=== PATIENT | female | born 1970 | race Caucasian/White ===

== ENCOUNTER 2023-04-26 09:22 | Outpatient (OUT) | payer OTHER, SELFPAY ==
--- NOTE | 2023-04-26 09:26 | MM_ITS ---
Patient: HARRISON NASH Exam Date: 04/26/2023 : 1970 Gender:F Ordering : DR YOSEF BERNARD Admission #: [id number] Family : Order #: [id number] CLICK HERE TO VIEW EXAM RADIOLOGY REPORT PROCEDURE: MM TOMOSYNTHESIS SCREENING BI COMPARISON: MG MAMM SCREEN 3D CONSUELO CAD, 04/25/2022. MG MAMM SCREEN CONSUELO W CAD, 05/22/2020. MG MAMM CONSUELO SCRN W CAD DIG, 05/11/2015. INDICATIONS: Screening Calculator Name NCI Breast Cancer Risk Assessment Tool 5 Year Breast Cancer Risk 1.60% Lifetime Breast Cancer Risk 12.80% Personal Breast Cancer No Personal Ovarian Cancer No Treatments None Family Cancers None LOCATION: [facility] BREAST COMPOSITION: Scattered areas fibroglandular density. FINDINGS: DIAGNOSTIC CATEGORY 2--BENIGN FINDING: RIGHT BREAST: No significant suspicious finding. Scattered benign-appearing calcifications are present. No significant change has occurred. LEFT BREAST: No significant suspicious finding. Scattered benign-appearing calcifications are present. No significant change has occurred. RECOMMENDATIONS: ROUTINE MAMMOGRAM AND CLINICAL EVALUATION IN 12 MONTHS. PLEASE NOTE: A NORMAL MAMMOGRAM DOES NOT EXCLUDE THE POSSIBILITY OF BREAST CANCER. A CLINICALLY SUSPICIOUS PALPABLE LUMP SHOULD BE BIOPSIED. Dictated by: Porter Bonner M.D. on 05/01/2023 at 12:49 Approved by: Porter Bonner M.D. on 05/01/2023 at 12:51
== END 2023-04-26 09:23 | disposition home or self-care (01) ==
LOC: MAMMO 09:22
PROVIDERS: PCP Internal Medicine; Visit Provider Internal Medicine
DX: Z12.31 Encounter for screening mammogram for malignant neoplasm of breast (principal)
CPT/HCPCS: 77063; 77067

== ENCOUNTER 2025-02-10 16:05 | Outpatient (OUT) | payer OTHER, SELFPAY ==
--- OUTSIDE RECORDS SUMMARY | 2025-02-10 16:08 | XMS_ITS | Encounter Summary ---
Author Organization [facility] Address [address] [place] [address] Care Team Providers Care Principal Consulting Engineer Name Role Phone Christiane Helms(Historical) Unavailable Unavail able Douglas Faulkner, Jeison MALCOLM Primary Care Provider + Anabel Bonilla RN Unavailable Unavaila Antonio Carmona Primary Care Provider [phone] Rebecca Soliz MD Primary Care Provider [phone] Source Comments In the event this information is protected by the Federal Confidentiality of Alcohol and Drug AbusePatient Records regulations: The Federal rules restrict any use of the information to criminally investigate or prosecute any alcohol or drug abuse patient.[facility] Encounter Details Date Type Department Care Team (Late st Contact Info) Description 02/09/2023 Patient [facility] [address] [address] Vickie Ace RN Out of the office Social History Tobacco Use Types Packs/Day Years Used Date Smoking Tobacco: Former Cigarettes 0.5 29 0 08/1986 - 08/2015 Smokeless Tobacco: Never Alcohol Use Standard Drinks/Week Comments No 0 (1 standard drink = 0.6 oz pur e alcohol) Area Deprivation Index Answer Date Rodrigue rded National Score (1-100), lower number is lower ri sk 59 12/29/2022 State Score (1-10), lower number is lower risk 4 12/29/2022 Data from: https://www.neighborhoodatlas.medicine.[facility]/. Last address used for calculation [address] 12/29/2022 Comments No Sex and Gender Information Value Date Recorded Sex Assigned at Not on file Legal Sex Female 8:21 AM EST Gender Identity Not on file Sexual Orientation Not on file documented as of this encounter Plan of Treatment Upcoming Encounters Date Type Department Care Team (Late st Contact Info) Description 02/21/2025 7:45 AM EDT Appointment Radiology Pet CT [address] [facility] [place] [address] CT with Labs 02/24/2025 12:00 PM EDT [facility] [address] [id number] Kaylynn Bethea, IT NETWORK ARCHITECT.TMR TEACHER [address] [place] [address] f/up 03/17/2025 7:30 AM EDT Office Visit [facility] [address] [place], [place] [address] [address] LAB 04/14/2025 7:30 AM EDT Office Visit [facility] [address] [place] [address] LAB 05/19/2025 7:30 AM EST Office [facility] [address] [facility] [place] [address] LAB 06/16/2025 7:30 AM EST Office Visit [facility] [address] [facility] [place] [address] LAB documented as of this encounter Visit Diagnoses Not on filedocumented in this encounter Additional Health Concerns Infection Onset Date Last Indicated Resolved Time COVID-19 Rule-Out 02/22/2023 02/22/2023 02/22/2023 7:08 PM EDT documented as of this encounter Care Teams Principal Consulting Engineer Relationship Specialty Start Date End Date Jeison Cole Sr., DO PCP - General Family Medicine 03/09/22 03/08/23 Antonio Nelson [address] [place] [address] PCP - General Internal Medicine 03/09/23 01/08/24 Rebecca Soliz MD [address] [place] [address] PCP - General Family Medicine 01/09/24 Christiane Helms(Historical) Referring 01/21/22 Anabel Bonilla, RN 02/24/23 documented as of this encounter
--- OUTSIDE RECORDS SUMMARY | 2025-02-10 16:08 | XMS_ITS | Clinical Summary ---
Author Organization [employer] tem Address [facility] [id number] [address] [place] [address] Care Team Providers Care Freight Loading Supervisor Name Role Phone Rebecca Soliz MD Primary Care Provider Allergies No known active allergies Medications multivit with minerals/lutein (MULTIVITAMIN 50 PLUS ORAL) Take by mouth. Acti ve mycophenolate (CELLCEPT) 250 mg capsule Take 4 capsules (1,000 mg total) by mouth 2 (two) times a day as needed. 3 Active tacrolimus (PROGRAF) 1 mg capsule Take 4 capsules (4 mg total) by mouth in the morning and 4 capsules (4 mg total) before bedtime. 3 Active acetaminophen (TYLENOL EXTRA STRENGTH) 500 mg tablet Take 1 tablet (500 mg total) by mouth every 6 (six) hours as needed. 3 Active predniSONE (DELTASONE) 5 mg tablet Take 1 tablet (5 mg total) by mouth in the morning. 3 Active magnesium oxide (MAGOX) 400 mg tablet Take 1 tablet (400 mg total) by mouth in the morning and 1 tablet (400 mg total) before bedtime. 3 Active fluticasone propionate (FLONASE) 50 mcg/actuation nasal sprayIndications :Seasonal allergic rhinitis due to pollen Administer 1 spray into each nostril in the morning. 16 g 2 4 Active Additional Information Patient not taking.Reported on 12/11/2024 phentermine 37.5 MG capsuleIndicatio ns:Obesity, Class II, BMI 35-39.9 Take 1 capsule (37.5 mg total) by mouth every morning. 30 capsule 4 Active Additional Information Patient not taking.Reported on 12/11/2024 levothyroxine (SYNTHROID, LEVOTHROID) 112 MCG tabletIndication s:Arlene's thyroiditis take 1 tablet by mouth every day 90 tablet 1 4 Active pramipexole (MIRAPEX) 1 mg tabletIndication s:Restless leg syndrome take 1 tablet by mouth every night 90 tablet 4 Active Additional Information Patient not taking.Reported on 12/11/2024 Active Problems Problem Noted Date Diagnosed Date Need for prophylactic immunotherapy 02/27/2023 Overview (03/20/2023): Last Assessment & Plan: Crossmatch T & B cell positive Induction: Simulect 02/24, 02/28 Current immunosuppression: Cellcept 1000 mg BID Steroid taper Tacrolimus 4 mg BID FK level is 7.8 Plan: -Continue current Tacrolimus dose -Continue Cellcept and Steroid taper -FK level daily Obesity, Class II, BMI 35-39.9 02/25/2023 Overview (03/20/2023): Last Assessment & Plan: ASSESSMENT: -BMI 36.36 PLAN: -lifestyle modifications as able Arlene's thyroiditis 04/19/2022 Lesion of liver 04/19/2022 Esophageal varices without bleeding 03/22/2022 Red blood cell antibody positive 03/15/2022 Overview (04/19/2022): See Blood Bank Report, Antibody Interpretation for details. Autoimmune hepatitis 01/22/2009 Resolved Problems Problem Noted Date Diagnosed Date Resolved Date Supraventricular tachycardia 02/23/2023 03/20/2023 Overview (03/20/2023): Last Assessment & Plan: developed SVT intraop which resolved after pressors and fluids. Currently hemodynamically stable Plan: -continues telemetry monitoring - monitor electrolytes Cirrhosis of liver without ascites 03/22/2022 03/20/2023 Hepatocellular carcinoma 03/22/2022 Encounters Date Type Department Care Team Description 12/25/2024 Telephone [facility] [facility] [address] [place] [address] Kristen Robin MD 12/11/2024 7:30 PM EDT Clinical Support [facility] - Sleep Disorders [address] [place] [address] Suspected sleep apnea; Shift work sleep disorder; Excessive daytime sleepiness; Insomnia due to medical condition 12/11/2024 Travel from Last 3 Months Immunizations Immunization Administration Dates Next Due Hep A / Hep B 11/09/2012,10/05/2012 Pneumococcal Polysaccharide 10/05/2012 Family History Medical History Relation Name Comments Diabetes Father Diabetes Paternal Grandmother Glaucoma Paternal Grandmother Relation Name Status Comments Father Paternal Grandmother Social History Tobacco Use Types Packs/Day Years Used Date Smoking Tobacco: Former Cigarettes Smokeless Tobacco: Former Tobacco Cessation:Counseling Given: Not Answered Alcohol Use Standard Drinks/Week Comments Not Currently 0 (1 standard drink = 0.6 oz pur e alcohol) PHQ-2 Answer Date Recorded Total Score 2 05/22/2024 Childcare Answer Date Recorded Childcare Unknown 12/12/2018 Employment Answer Date Recorded Employment Unknown 12/12/2018 Hunger Screening Answer Date Recorded Within the past 12 months we worried whether our food would run out before we got money to buy more. Never True 11/21/2023 Within the past 12 months th e food we bought just didn't last and we didn't have money to get more. Never True 11/21/2023 Comments No Sex and Gender Information Value Date Recorded Sex Assigned at Not on file Legal Sex Female 11:37 AM EDT Gender Identity Not on file Sexual Orientation Not on file Last Filed Vital Signs Vital Sign Reading Time Taken Comments Blood Pressure 110/70 05/22/2024 8:14 AM EST Pulse 84 02/12/2024 3:26 PM EDT Temperature 36.7 C (98 F) 11/21/2023 9:33 AM EDT Respiratory Rate 18 11/21/2023 9:33 AM EDT Oxygen Saturation 97% 11/21/2023 9:33 AM EDT Inhaled Oxygen Concentration - - Weight 99.8 kg (220 lb) 12/11/2024 7:18 PM EDT Height 162.6 cm (5' 4 ) 12/11/2024 7:18 PM EDT Body Mass Index 37.76 12/11/2024 7:18 PM EDT Plan of Treatment Upcoming Encounters Date Type Department Care Team (Late st Contact Info) Description 02/12/2025 3:00 PM EDT Office Visit [facility] [address] [place] [address] Health Maintenance Due Date Last Done Comments DTaP,Tdap and Td Vaccines (1 - Tdap) 1989 Zoster (Shingles) Vaccine (1 of 2) 2020 COVID-19 Vaccine (3 - 2023-2 5 season) 2024 05/31/2021, 11/04/2020 Adult BMI Follow Up Plan 06/15/2024 06/15/2023 Influenza Vaccine 03/03/2025 Pap Smear 04/19/2025 04/19/2022, 04/02, 04/19/2022 Mammogram 05/03/2025 05/03/2024, 04/26/2023 Depression Screening 05/22/2025 05/22/2024 Tobacco Screening 05/22/2025 05/22/2024 Adult BMI Screening 12/11/2025 12/11/2024 Medical Devices Not on file Procedures Procedure Name Priority Date/Time Associated Diagnosis Comments HOME SLEEP STUDY Routine 12/11/2024 6:44 PM EDT Suspected sleep apnea Shift work sleep disorder Excessive daytime sleepiness Insomnia due to medical condition HIGH RISK HPV W/YASSINE Routine 04/19/2022 9:26 AM EDT from Last 3 Months or Most Recently Relevant to Health Maintenance Results * Home sleep study (12/11/2024 6:44 PM EDT) 12/11/2024 6:44 PM EDT Narrative [facility] - 12/25/2024 12:56 AM EDT INTERPRETED us Kristen Robin MD [facility]ENTER ORDERABLES Final Re sult [facility] * High risk HPV w/yassine (04/19/2022 9:26 AM EDT) Hpv specimen type ThinPrep 04/20/2022 9:26 AM EDT [facility] Hpv 16 Negative Negative^N egative 04/21/2022 2:31 PM EDT [facility] Hpv 18 Negative Negative^N egative 04/21/2022 2:31 PM EDT [facility] Other high risk hpv Negative Negative^N egative 04/21/2022 2:31 PM EDT [facility] Comment: HPV types 31,33,35,39,45,52,56,58,59,66 and 68 DNA were undetectable. THINP 04/19/2022 9:26 AM EDT 04/20/2022 9:26 AM EDT us Jinny Perrin BEE ROBBER-GARMENT PRESSER LAB BLOOD ORDERABLES Fin al Result [facility] [address] [facility] [facility] [place] [address] from Last 3 Months or Most Recently Relevant to Health Maintenance Insurance [employer] [address] Care Teams Freight Loading Supervisor Relationship Specialty Start Date End Date Rebecca Soliz MD [address] [place] [address] PCP - General Family Medicine 02/12/24
--- OUTSIDE RECORDS SUMMARY | 2025-02-10 16:08 | XMS_ITS | Encounter Summary ---
Author Organization [facility] tem Address [id number] [address] [place] [address] Care Team Providers Care Front Line Supervisor Name Role Phone Rebecca Soliz MD Primary Care Provider [phone] Encounter Details Date Type Department Care Team (Late Contact Info) Description 05/03/2023 Orders Only [facility] - [facility] Medicine [address] [place] [address] Antonio Nelson, [address] [place] [address] Social History Tobacco Use Types Packs/Day Years Used Date Smoking Tobacco: Former Cigarettes Smokeless Tobacco: Former Alcohol Use Standard Drinks/Week Comments Not Currently 0 (1 standard drink = 0.6 oz pur e alcohol) PHQ-2 Answer Date Recorded Total Score 2 04/26/2023 Childcare Answer Date Recorded Childcare Unknown 12/12/2018 Employment Answer Date Recorded Employment Unknown 12/12/2018 Hunger Screening Answer Date Recorded Within the past 12 months we worried whether our food would run out before we got money to buy more. Never True 04/26/2023 Within the past 12 months th e food we bought just didn't last and we didn't have money to get more. Never True 04/26/2023 Comments No Sex and Gender Information Value Date Recorded Sex Assigned at Not on file Legal Sex Female 11:37 AM EDT Gender Identity Not on file Sexual Orientation Not on file documented as of this encounter Plan of Treatment Upcoming Encounters Date Type Department Care Team (Late Contact Info) Description 02/12/2025 3:00 PM EDT Office Visit [facility] [address] [place] [address] documented as of this encounter Visit Diagnoses Not on filedocumented in this encounter Additional Health Concerns Assessment Noted Time PHQ-9 Depression Total Score: 2 04/26/20 11:11 AM EDT A Body Mass Index follow-up plan has been documented for the patient 04/26/2023 11:53 AM EDT documented as of this encounter Care Teams Front Line Supervisor Relationship Specialty Start Date End Date Rebecca Soliz MD [address] [place] [address] PCP - General Family Medicine 02/12/24 documented as of this encounter
--- OUTSIDE RECORDS SUMMARY | 2025-02-10 16:08 | XMS_ITS | Encounter Summary ---
Author Organization [facility] Address [id number] [address] [place] [address] Care Team Providers Care Window Air Conditioner Installer Name Role Phone Rebecca Soliz MD Primary Care Provider [phone] Encounter Details Date Type Department Care Team ([facility] st Contact Info) Description 10/30/2024 Telephone [facility] [address] [facility] [address] [place] [address] Kristen Robin MD [address] [facility] [address] Left practice 11/[address] [place] [address] Social History Tobacco Use Types Packs/Day Years [...] on file documented as of this encounter Miscellaneous Notes * Telephone Encounter - Pura Schuler - 10/30/2024 9:05 AM EDT 10/30/24- left second message to try to figure out where Zenia had her home sleep study done so I can get the results for Dr. Robin. documented in this encounter Plan of Treatment Upcoming Encounters Date Type Department Care Team (Late st Contact Info) Description 02/12/2025 3:00 PM EDT Office Visit [facility] [address] [place] [address] documented as of this encounter Visit Diagnoses Not on filedocumented in this encounter Additional Health Concerns Assessment Noted Time PHQ-9 Depression Total Score: 2 05/22/20 8:15 AM EST A Body Mass Index follow-up plan has been documented for the patient 06/15/2023 10:43 AM EST documented as of this encounter Care Teams Window Air Conditioner Installer Relationship Specialty Start Date End Date Rebecca Soliz MD [address] [place] [address] PCP - General Family Medicine 02/12/24 documented as of this encounter
--- OUTSIDE RECORDS SUMMARY | 2025-02-10 16:08 | XMS_ITS | Encounter Summary ---
Author Organization [facility] Address [address] [place] [address] Care Team Providers Care Mannequin Decorator Name Role Phone Christiane Helms(Historical) Unavailable Unavail able Douglas Faulkner DO, Charles P Primary Care Provider + Anabel Bonilla RN Unavailable Unavaila Antonio Carmona Primary Care Provider [phone] Rebecca Soliz MD Primary Care Provider [phone] Source Comments In the event this information is protected by the Federal Confidentiality of Alcohol and Drug AbusePatient Records regulations: The Federal rules restrict any use of the information to criminally investigate or prosecute any alcohol or drug abuse patient.[facility] Encounter Details Date Type Department Care Team (Late st Contact Info) Description 04/14/2022 Patient [facility] [address] [address] Provider, [facility] LIVER TRANSPLANT EVALUATION Social History Tobacco Use Types Packs/Day Years Used Date Smoking Tobacco: Former Cigarettes 0.5 20 Smokeless Tobacco: Never Comments:Quit 08/2015 Alcohol Use Standard Drinks/Week Comments No 0 (1 standard drink = 0.6 oz pur e alcohol) Comments No Sex and Gender Information Value Date Recorded Sex Assigned at Not on file Legal Sex Female 8:21 AM EST Gender Identity Not on file Sexual Orientation Not on file COVID-19 Exposure Response Date Recorded In the last 10 days, have yo u been in contact with someone who was confirmed or suspected to have Coronavirus/COVID-19? No / Unsure 04/14/2022 10:29 AM EDT documented as of this encounter Plan of Treatment Upcoming Encounters Date Type Department Care Team (Late st Contact Info) Description 02/21/2025 7:45 AM EDT Appointment Radiology Pet CT [address] [facility] [place] [address] CT with Labs 02/24/2025 12:00 PM EDT [facility] [address] [address] Kaylynn Bethea APRN.CHAIN PERSON [address] [place] [address] f/up 03/17/2025 7:30 AM EDT Office Visit [facility] [address] [facility] [place] [address] LAB 04/14/2025 7:30 AM EDT Office Visit [facility] [address] [facility] [place] [address] LAB 05/19/2025 7:30 AM EST Office Visit [facility] [address] [facility] [place] [address] LAB 06/16/2025 7:30 AM EST Office Visit [facility] [address] [facility] [place] [address] LAB documented as of this encounter Visit Diagnoses Not on filedocumented in this encounter Additional Health Concerns Infection Onset Date Last Indicated Resolved Time COVID-19 Rule-Out 02/22/2023 02/22/2023 02/22/2023 7:08 PM EDT documented as of this encounter Care Teams Mannequin Decorator Relationship Specialty Start Date End Date Jeison Cole Sr., PCP - General Family Medicine 03/09/22 03/08/23 Antonio Nelson [address] [place] [address] PCP - General Internal Medicine 03/09/23 01/08/24 Rebecca Sloiz MD [address] [place] [address] PCP - General Family Medicine 01/09/24 Christiane Helms(Historical) Referring 01/21/22 Anabel Bonilla, RN 02/24/23 documented as of this encounter
--- OUTSIDE RECORDS SUMMARY | 2025-02-10 16:08 | XMS_ITS | Encounter Summary ---
Author Organization [email or web address] [facility] tem Address [id number] [address] [place] [address] Care Team Providers Care Chief Executive Or Managing Director Name Role Phone Rebecca Soliz MD Primary Care Provider [phone] Reason for Referral * Consultation (Routine) - Closed Specialty Diagnoses / Procedures Referred By Contac t Referred To Contact Vascular Surgery Diagnoses Varicose veins of both lower extremities with pain Antonio Nelson DO [address] [place] [address] Phone: tel: fax: Gissel Mcarthur MD Phone: tel:[phone] fax: Referral ID Status Reason Start Date Expiration Date V isits Requested Visits Authorized [id number] Closed Specialty Services Required 12/06/2023 12/05/2024 4 4 Encounter Details Date Type Department Care Team (Late st Contact Info) Description 12/06/2023 Orders Only [facility] - [facility] [address] [place] [address] Antonio Nelson DO [address] [place] [address] Varicose veins of both lower extremities with pain (Primary Dx) Social History Tobacco Use Types Packs/Day Years Used Date Smoking Tobacco: Former Cigarettes Smokeless Tobacco: Former Alcohol Use Standard Drinks/Week Comments Not Currently 0 (1 standard drink = 0.6 oz pur e alcohol) PHQ-2 Answer Date Recorded Total Score 0 11/21/2023 Childcare Answer Date Recorded Childcare Unknown 12/12/2018 [...] PM EDT Office Visit [facility] [address] [place] [address] Scheduled Referrals Name Type Priority Associated Diagnoses Order Schedule [facility] [place] [place] Out[facility] Referral Routine Varicose veins of both lower extremities with pain 1 Occurrences starting 12/06/2023 until 12/05/2024 documented as of this encounter Visit Diagnoses Diagnosis Varicose veins of both lower extremities with pain- Primary documented in this encounter Additional Health Concerns Assessment Noted Time PHQ-9 Depression Total Score: 0 11/21/19 24 9:32 AM EDT A Body Mass Index follow-up plan has been documented for the patient 06/15/2023 10:43 AM EST documented as of this encounter Care Teams Chief Executive Or Managing Director Relationship Specialty Start Date End Date Rebecca Soliz MD [address] [place] [address] PCP - General Family Medicine 02/12/24 documented as of this encounter
--- OUTSIDE RECORDS SUMMARY | 2025-02-10 16:08 | XMS_ITS ---
Author Organization [facility] Address [address] [place] [id number] Care Team Providers Care Practice Specialist Name Role Phone Christiane Helms(Historical) Unavailable Unavail able Anabel Bonilla RN Unavailable Unavaila Rebecca Stafford MD Primary Care Provider [phone] Transplant Episode Liver Recipient [facility] ([place], [place]) [facility] Organ Received: Liver Transplanted on 02/23/2023 Marked as Active Follow-up on 02/23/2023 Liver CoordinatorAnabel Bonilla RN Phone: N/A Fax: N/A Email: N/A [place] Organ Diagnosis Organ Primary Contributory Liver Primary Liver Malignancy: Hepato ma (HCC) and Cirrhosis Cirrhosis: Autoimmune Donor Information Organ ABO Source Meets Risk Criteria HLA Match Mismatches Cross Match Liver Transplanted O DCD No A: B: DR: Liver Donor Serology Results Anti-CMV CMV IgG: Negative EBV IgG EBV VCA IgG: Positive Anti-HBcAb HBC Total: Negative HBsAg HBsAg: Negative HBV DNA No results on file Anti-HCV HCV: Negative Anti-HIV I/II HIV-1: Not Done HIV Ag/Ab Combo Assay: Negative Anti-HTLV I/II HTLV: Not Done RPR/VDRL RPR: Negative EBV IgM EBV VCA IgM: Negative HBsAb HBsAb: Not Done EBNA No results on file Toxoplasma Toxoplasma IgG: Negative HSV 1 No results on file HSV 2 No results on file Quantiferon TB No results on file Measles No results on file Mumps No results on file SARS CoV-2 No results on file anti-HBc No results on file Chagas No results on file WNVNAT No results on file HBV SANDRA No results on file HCV SANDRA HCV SANDRA: Negative Strongyloides No results on file Care Team Name Role Phone Fax Email Anabel Bonilla, DINA Liver Coordinator N/A N/A N/A Lloyd Menjivar MD Surgeon [phone] N/A Magda Palmer RD Sox Analyst [phone] N/A TOMMIE Proctor Ship'S Officer [phone] N/A Jesi Pan MD Referring [phone] N/A Ankit Reyes, [facility] Pharmacist [phone] N/A N/A Rubén Folr MD Anesthesiologist [phone] N/A Erika [place] MD Transplant Physician [phone] [facility] Events Post-Transplant Pre-Transplant Admitted: 02/22/2023 Referred: 04/07/2022 Transplanted: 02/23/2023 Evaluation began: 2 Discharged: 03/02/2023 Committee: 07/13/2022 Center waitlisted: 3 Appointments (01/10/2025 - 03/13/2025) When With Visit Type Description 02/24/2025 TRANSPLANT - Michelle Bethea Video Visit f/u p
--- OUTSIDE RECORDS SUMMARY | 2025-02-10 16:08 | XMS_ITS | Encounter Summary ---
Author Organization [employer] [facility] tem Address [facility] [place] [id number] [address] [place] [address] Care Team Providers Care Parts Classifier Name Role Phone Rebecca Soliz MD Primary Care Provider [phone] Encounter Details Date Type Department Care Team (Late st Contact Info) Description 12/04/2023 Telephone [facility] [address] [facility] [facility] [place] [phone] Alana Rivera CMA Social History Tobacco Use Types Packs/Day Years [...] encounter Miscellaneous Notes * Telephone Encounter - Alana Rivera CMA - 12/04/2023 12:00 PM EDT ----- Message from Antonio Nelson DO sent at 12/03/2023 8:17 AM EDT ----- Reviewed. Her venous doppler exam shows chronic venous reflux on both legs, and workforce manager vein reflux on theleft. Treatment is a combination of wearing compression stockings when she is up for work, etc, andthere are some surgical interventions which can reduce some of the reflux. I can arrange for her totalk to vascular surgery if she agrees. documented in this encounter Plan of Treatment Upcoming Encounters Date Type Department Care Team (Late st Contact Info) Description 02/12/2025 3:00 PM EDT Office Visit [facility] [address] [place] [address] documented as of this encounter Visit Diagnoses Not on filedocumented in this encounter Additional Health Concerns Assessment Noted Time PHQ-9 Depression Total Score: 0 11/21/19 9:32 AM EDT A Body Mass Index follow-up plan has been documented for the patient 06/15/2023 10:43 AM EST documented as of this encounter Care Teams Parts Classifier Relationship Specialty Start Date End Date Rebecca Soliz MD [address] [place] [address] PCP - General Family Medicine 02/12/24 documented as of this encounter
--- OUTSIDE RECORDS SUMMARY | 2025-02-10 16:08 | XMS_ITS | Encounter Summary ---
Author Organization [employer] tem Address [id number] [address] [place] [address] Care Team Providers Care Secondary School Teacher Name Role Phone Rebecca Soliz MD Primary Care Provider [phone] Encounter Details Date Type Department Care Team (Late st Contact Info) Description 11/28/2023 Telephone [facility] [address] [facility] [place] [phone] Norma Mcdonald CMA Social History Tobacco Use Types Packs/Day [...] encounter Miscellaneous Notes * Telephone Encounter - Norma Mcdonald CMA - 11/28/2023 4:35 PM EDT Pt called and stated she finally got ahold of [employer] and the customer service said only 23 minutesrecorded of her sleep so they could not interpret the sleep study. Where do you go from here? * Telephone Encounter - Antonio Nelson DO - 11/28/2023 4:35 PM EDT Message noted. Do we know if [employer] will repeat the test for free, since it was incomplete? Do they know why theydid not get the complete data? * Telephone Encounter - Norma Mcdonald CMA - 11/28/2023 4:35 PM EDT Local [employer] will do it again but I am sure it will be out of pocket. Patient is very frustrated with the company and will not go back there. [employer] told her they have no clue as to why it did not record. They told her that must be all she slept. * Telephone Encounter - Antonio Nelson DO - 11/28/2023 4:35 PM EDT Message noted. Would she be willing to go to the sleep lab and get it done? * Telephone Encounter - Norma Mcdonald CMA - 11/28/2023 4:35 PM EDT Left message for patient to call back and let me know if she would like the sleep study documented in this encounter Plan of Treatment Upcoming Encounters Date Type Department Care Team (Late st Contact Info) Description 02/12/2025 3:00 PM EDT Office Visit [facility] [address] [place] [address] documented as of this encounter Visit Diagnoses Not on filedocumented in this encounter Additional Health Concerns Assessment Noted Time PHQ-9 Depression Total Score: 0 11/21/19 9:32 AM EDT A Body Mass Index follow-up plan has been documented for the patient 06/15/2023 10:43 AM EST documented as of this encounter Care Teams Secondary School Teacher Relationship Specialty Start Date End Date Wonderly, Rebecca Majano MD [address] [place] [address] PCP - General Family Medicine 02/12/24 documented as of this encounter
--- OUTSIDE RECORDS SUMMARY | 2025-02-10 16:08 | XMS_ITS | Encounter Summary ---
Author Organization [employer] [facility] tem Address [facility] [id number] [address] [place] [address] Care Team Providers Care Traffic Engineering Technician Name Role Phone Rebecca Soliz MD Primary Care Provider [phone] Encounter Details Date Type Department Care Team (Late st Contact Info) Description 12/06/2023 Telephone [facility] [address] [facility] [place] [phone] Alana Rivera CMA Social History Tobacco Use [...] Telephone Encounter - Alana Rivera CMA - 12/06/2023 1:25 PM EDT Pt returning our call about the result note Venous doppler exam. She verbally states she understands and would like for you to arrange for her to talk to a Vascular surgery. She would like to stay around the [place] area. Thank you * Telephone Encounter - Antonio Nelson DO - 12/06/2023 1:25 PM EDT Message noted. Let her know referral made to Vascular Surgery on [address] in [place] Dr [place] * Telephone Encounter - Alana Rivera CMA - 12/06/2023 1:25 PM EDT I called pt and talked to Mother Rebecca and gave info. documented in this encounter Plan of Treatment Upcoming Encounters Date Type Department Care Team (Late st Contact Info) Description 02/12/2025 3:00 PM EDT Office Visit [facility] [address] [place] [address] documented as of this encounter Visit Diagnoses Not on filedocumented in this encounter Additional Health Concerns Assessment Noted Time PHQ-9 Depression Total Score: 0 11/21/19 24 9:32 AM EDT A Body Mass Index follow-up plan has been documented for the patient 06/15/2023 10:43 AM EST documented as of this encounter Care Teams Traffic Engineering Technician Relationship Specialty Start Date End Date Rebecca Soliz MD [address] [place] [address] PCP - General Family Medicine 02/12/24 documented as of this encounter
--- OUTSIDE RECORDS SUMMARY | 2025-02-10 16:09 | XMS_ITS | Clinical Summary ---
Author Organization [facility] Healthcare Address [address] [place] [address] Care Team Providers Care Dry Kiln Worker Name Role Phone Rebecca Soliz MD Primary Care Provider [phone] Allergies No known active allergies Medications predniSONE (Deltasone) 5 MG tablet Take 5 mg by mouth in the morning. 03/20/2023 Active tacrolimus (Prograf) 1 MG capsule Take 3 mg by mouth in the morning and 3 mg in the evening. 10/11/2023 Active mycophenolate (Cellcept) 250 MG capsule Take 500 mg by mouth in the morning and 500 mg in the evening. 02/28/2023 Active sulfamethoxazole -trimethoprim (Bactrim DS) 800-160 MG per tablet Take 1 tablet by mouth 05/12/2023 Active magnesium oxide (Mag-Ox) 400 MG tablet Take 400 mg by mouth in the morning and 400 mg in the evening. 03/27/2023 Active MULTIPLE VITAMIN PO Take by mouth Active phentermine 37.5 MG capsuleIndicatio ns:Morbid obesity (CMS-HCC) Take 1 capsule (37.5 mg) by mouth in the morning. Take before meals. 30 capsule 05/15/2024 Active levothyroxine (Synthroid, Levoxyl) 112 MCG tabletIndication s:Hypothyroidism , unspecified type Take 1 tablet (112 mcg) by mouth in the morning. 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 Low magnesium level 02/06/2024 CKD stage 3a, GFR 45-59 ml/min 02/06/2024 Liver transplant status 02/06/2024 Obesity, Class II, BMI 35-39.9 02/25/2023 Overview (04/11/2024): Last Assessment & Plan: ASSESSMENT: -BMI 36.36 PLAN: -lifestyle modifications as able Last Assessment & Plan: ASSESSMENT: -BMI 36.36 PLAN: -lifestyle modifications as able Coagulopathy (HHS-HCC) 02/23/2023 Overview (04/11/2024): Last Assessment & Plan: ASSESSMENT: -02/24: INR 1.7, APTT 51.3, Plt 43, fibrinogen 168 -02/25: INR 1.7; APTT 39.7 -okay for SQ PLAN: -monitor coags -monitor clinically for signs of bleeding Supraventricular tachycardia 02/23/2023 Overview (04/11/2024): Last Assessment & Plan: developed SVT intraop which resolved after pressors and fluids. 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 See Blood Bank Report, Antibody Interpretation for details. Last Assessment & Plan: ASSESSMENT: -Pt had possible reaction to Platelets intraoperatively. Pt has red blood cell antibody positivity. PLAN: -maintain type and screen with crossmatch Autoimmune hepatitis 01/22/2009 Resolved Problems Problem Noted Date Diagnosed Date Resolved Date Acute postoperative respiratory insufficiency 02/24/2006/04/2024 Overview (04/11/2024): Last Assessment & Plan: Saturating good on RA Plan: -BPH/IS -out of bed -supplemental O2 as needed Electrolyte imbalance 02/23/20232023 Overview (04/11/2024): Last Assessment & Plan: Hypophosphatemia - resolved Hypokalemia - 3.1 Plan: - Potassium chloride PO 10 mEq once - monitor Mg, K, Na, and Phos daily - replace electrolytes as needed History of Arlene thyroiditis 02/23/2023 06/04/2024 Overview (04/11/2024): Last Assessment & Plan: On 112 mcg of Synthroid at home Plan; Continue home regimen Post-op pain 02/23/2023 06/04/2024 Overview (04/11/2024): Last Assessment & Plan: S/p OLT Abdominal pain is controlled Reports back pain Plan: - stop fentanyl - continue Tylenol and Oxycodone - add Robaxin for back pain Postoperative anemia due to acute blood loss 3 09/18/2024 Overview (04/11/2024): Last Assessment & Plan: Estimated Blood Loss: 650 mls Transfusions: 0U PRBC, 0U FFP, 1U PLT, 0U cryo, 205 cc cellsaver H/H 10.8/32.4 Plan: - CBC daily - monitor for bleeding - transfuse as needed Liver transplant candidate 02/22/2023 1 08/05/2023 Lesion of liver 04/19/2022 06/04/2024 Need for hepatitis A and B vaccination 03/22/2022 06/04/2024 Colon cancer screening 03/22/202206/04 Encounters Date Type Department Care Team Description 02/10/[address] [facility] Medicine [address] [place] [address] Rebecca Soliz MD 12/23/[address] [facility] Medicine [address] [place] [address] Raquel Parisi MA 12/02/2024 [facility] Result Encounter [facility] External Department Unsolicited Provider, Generic External Data from Last 3 Months Immunizations Immunization Administration Dates Next Due Hep A / Hep B 11/09/2012,10/05/2012 Pneumococcal Polysaccharide PPSV23 10/05/2012 Family History Medical History Relation Name Comments Diabetes Father Diabetes Father's Brother Diabetes Father's Sister Heart disease Father's Sister phlebitis Father's Sister Hyperlipidemia Mother Hypertension Mother Heart disease Paternal Grandmother Relation Name Status Comments Father Alive Father's Brother Father's Sister Mother Alive Paternal Grandmother Social History Tobacco Use Types Packs/Day Years Used Date Smoking Tobacco: Former Cigarettes Passive Smoke Exposure: Past Smokeless Tobacco: Never Tobacco Cessation:Counseling Given: Not Answered Alcohol Use Standard Drinks/Week Comments Never 0 (1 standard drink = 0.6 oz pur e alcohol) AUDIT-C Answer Date Recorded Q1: How often do you have a drink containing alcohol? Never 06/04/2024 Q2: How many drinks containi ng alcohol do you have on a typical day when you are drinking? Patient does not drink Q3: How often do you have si x or more drinks on one occasion? Never 06/04/2024 PHQ-2 Answer Date Recorded Patient Health Questionnaire-2 Score 0 01/09/2024 Comments Unknown Sex and Gender Information Value Date Recorded Sex Assigned at Not on file Legal Sex Female 6:45 PM EDT Gender Identity Not on file Sexual Orientation Not on file Last Filed Vital Signs Vital Sign Reading Time Taken Comments Blood Pressure 122/72 09/18/2024 8:42 AM EDT Pulse 72 09/18/2024 8:42 AM EDT Temperature - - Respiratory Rate - - Oxygen Saturation - - Inhaled Oxygen Concentration - - Weight 97.3 kg (214 lb 9.6 oz) 06/04/2024 8:28 A M EST Height 160.7 cm (5' 3.25 ) 06/04/2024 8:28 AM ES T Body Mass Index 37.71 06/04/2024 8:28 AM EST Plan of Treatment Health Maintenance Due Date Last Done Comments CT Colonography 1970 FIT-DNA 1970 FIT 1970 FOBT 1970 Sigmoidoscopy 1970 HPV/Cotest 2000 Influenza Vaccine (#1) 2025 Cervical Cancer Screening 04/19/2025 Pap Smear 04/19/2025 04/19/2022 Mammogram 05/03/2025 05/03/2024, 04/26/2023 Colonoscopy 10/19/2028 10/19/2018 Colorectal Cancer Screening 10/19/2028 Procedures Procedure Name Priority Date/Time Associated Diagnosis Comments [facility] CBC W AUTO DIFF BLD Routine 12/02/2024 7:22 AM EDT BI MAMMOGRAM SCREENING TOMOSYNTHESIS BILATERAL Routine 05/03/2024 9:06 AM EDT Screening mammogram for breast cancer PAP SMEAR Routine 04/19/2022 11:19 AM EDT HM COLONOSCOPY Routine 10/19/2018 11:47 AM EDT from Last 3 Months or Most Recently Relevant to Health Maintenance Results * (ABNORMAL) [facility] CBC W AUTO DIFF BLD (12/02/2024 7:22 AM EDT) [facility] WBC # BLD AUTO 6.47 3.70 - 11.00 k/uL [facility] RBC # BLD AUTO 5.49(H) 3.90 - 5.20 m/uL [facility] HGB BLD-MCNC 15.4 11.5 - 15.5 g/dL [facility] HCT VFR BLD AUTO 45.9 36.0 - 46.0 % [facility] MCV RBC AUTO 83.6 80.0 - 100.0 fL [facility] MCH RBC QN AUTO 28.1 26.0 - 34.0 pg [facility] MCHC RBC AUTO-MCNC 33.6 30.5 - 36.0 g/dL [facility] RDW RBC-RTO 13.3 11.5 - 15.0 % [facility] PLATELET # BLD AUTO 164 150 - 400 k/uL [facility] PMV BLD AUTO 11.3 9.0 - 12.7 fL [facility] NEUTROPHILS/LEUK NFR BLD AUTO 67.5 % [facility] NEUTROPHILS # BLD AUTO 4.37 1.45 - 7.50 k/uL [facility]CF LYMPHOCYTES/LEUK NFR BLD AUTO 17.9 % [facility]CF LYMPHOCYTES # BLD AUTO 1.16 1.00 - 4.00 k/uL [facility] MONOCYTES/LEUK NFR BLD AUTO 10.7 % [facility]CF MONOCYTES # BLD AUTO 0.69 <0.87 k/uL [facility]CF EOSINOPHIL/LEUK NFR BLD AUTO 1.9 % [facility]CF EOSINOPHIL # BLD AUTO 0.12 <0.46 k/uL [facility] BASOPHILS/LEUK NFR BLD AUTO 0.3 % [facility]CF BASOPHILS # BLD AUTO <0.03 <0.11 k/uL [facility] IMM GRANULOCYTES/LEUK NFR BLD AUTO 1.7 % [facility] IMM GRANULOCYTES # BLD AUTO 0.11(H) <0.10 k/uL [facility] NRBC/100 WBC BLD-RTO 0.0 /100 WBC [facility] NRBC # BLD AUTO <0.01 <0.01 k/uL [facility] DIFFERENTIAL METHOD BLD Auto [facility] 12/02/2024 7:22 AM EDT 12/02/2024 7:22 AM EDT Narrative ALEA - 12/02/2024 7:39 AM EDT Specimen Type: BLOOD SPECIMEN Ordering Facility: [facility] Address: [address] [place], [place] [id number] Original Ordering Provider: KAMAR LOPEZ us Generic External Data Provider [facility] F inal Result [facility] [address] [place] [address] * Bilateral screening mammogram with tomosynthesis (05/03/2024 9:06 AM EDT) Anatomical Region Laterality Modality Breast Bilateral Mammography 05/06/2024 10:2 0 AM EST Impressions 05/06/2024 10:26 AM EST Impression: No specific evidence of malignancy seen in either breast. BIRADS 2 - Benign DENSITY: There are scattered areas of fibroglandular density FOLLOW-UP: Routine Screening Mamm ELECTRONICALLY SIGNED BY: Kenneth Eden M.D. Narrative 05/06/2024 10:26 AM EST Examination: BI MAMMOGRAM SCREENING TOMOSYNTHESIS BILATERAL Clinical History: screening for breast cancer Technique: Screening digital mammography study of both breasts was performed with 2-D and 3-D tomosynthesis imaging. Study was compared to the prior exam dated 04/26/2023. Findings: There is no evidence of interval dominant spiculated mass, grouped microcalcifications, or skin thickening which would be suggestive of malignancy. Scattered benign-appearing calcifications noted bilaterally. Axillary lymph nodes are noted bilaterally. Procedure Note Kenneth Eden MD - 05/06/2024 Examination: BI MAMMOGRAM SCREENING TOMOSYNTHESIS BILATERAL Clinical History: screening for breast cancer Technique: Screening digital mammography study of both breasts wasperformed with 2-D and 3-D tomosynthesis imaging. Study was compared tothe prior exam dated 04/26/2023. Findings: There is no evidence of interval dominant spiculated mass,grouped microcalcifications, or skin thickening which would be suggestiveof malignancy. Scattered benign-appearing calcifications noted bilaterally. Axillarylymph nodes are noted bilaterally. IMPRESSION: Impression: No specific evidence of malignancy seen in either breast. BIRADS 2 - Benign DENSITY: There are scattered areas of fibroglandular density FOLLOW-UP: Routine Screening Mamm ELECTRONICALLY SIGNED BY: Kenneth Eden M.D. Carlie Muro SENIOR COBOL DEVELOPER IMG BI PROCEDURES Final Res ult * Pap Smear (04/19/2022 11:19 AM EDT) Swab Cervical swab / Unknown us Jinny Patino MD LAB CYTOLOGY ORDERABLES Edited Result - Final * Hm Colonoscopy (10/19/2018 11:47 AM EDT) Anatomical Region Laterality Modality Other Christiane Helms MD HEALTH MAINTENANCE Final Result from Last 3 Months or Most Recently Relevant to Health Maintenance Insurance [employer] Advance Directives Documents on File Type Date Recorded Patient Nerve Specialist Expl anation Power of Carpet Sewer 01/17/2024 12:11 PM 2023 POA Advance Directives and Living Will 01/17/2024 12:09 PM 2024-01-17 [place] Care Teams Dry Kiln Worker Relationship Specialty Start Date End Date Rebecca Soliz MD PCP - General Family Medicine 01/09/24
--- OUTSIDE RECORDS SUMMARY | 2025-02-10 16:09 | XMS_ITS | Encounter Summary ---
Author Organization [facility] Healthcare Address [address] [place] [address] Care Team Providers Care Director Global Name Role Phone Rebecca Soliz MD Primary Care Provider [phone] Encounter Details Date Type Department Care Team (Late st Contact Info) Description 10/30/2024 Orders Only [facility] Family Medicine [address] [place] [address] Adele Rock, DIE FINISHER [address] [place], [place] [id number] Obesity, Class II, BMI 35-39.9; Unable to lose weight Social History Tobacco Use Types Packs/Day Years Used Date Smoking Tobacco: Former Cigarettes Passive Smoke Exposure: Past Smokeless Tobacco: Never Alcohol Use Standard Drinks/Week Comments Never 0 [...] as of this encounter Plan of Treatment Not on file documented as of this encounter Procedures Procedure Name Priority Date/Time Associated Diagnosis Comments AMB REFERRAL TO WEIGHT MANAGEMENT Routine 10/30/2024 3:15 PM EDT Obesity, Class II, BMI 35-39.9 Unable to lose weight documented in this encounter Results * Ambulatory referral to Weight Management (10/30/2024 3:15 PM EDT) Adele Rock DIE FINISHER OUTPATIENT REFERRAL ORDERA BLES Final Result documented in this encounter Visit Diagnoses Diagnosis Obesity, Class II, BMI 35-39.9 Unable to lose weight documented in this encounter Care Teams Director Global Relationship Specialty Start Date End Date Rebecca Soliz MD PCP - General Family Medicine 01/09/24 documented as of this encounter
--- OUTSIDE RECORDS SUMMARY | 2025-02-10 16:09 | XMS_ITS | Encounter Summary ---
Author Organization [facility] Address [address] [place] [address] Care Team Providers Care Overseamer Name Role Phone Christiane Helms(Historical) Unavailable Unavail able Douglas Faulkner, Jeison MALCOLM Primary Care Provider + Anabel Bonilla RN Unavailable Unavaila Antonio Carmona Primary Care Provider [phone] Rebecca Soliz MD Primary Care Provider [phone] Source Comments In the event this information is protected by the Federal Confidentiality of Alcohol and Drug AbusePatient Records regulations: The Federal rules restrict any use of the information to criminally investigate or prosecute any alcohol or drug abuse patient.[facility] Encounter Details Date Type Department Care Team (Late st Contact Info) Description 02/17/2023 Patient Msg Transplant Center [address] [address] Vickie Ace RN Vacation alert Social History Tobacco Use Types Packs/Day Years [...] is lower risk 4 12/29/2022 Data from: https://www.neighborhoodatlas.medicine.[facility]/. Last address used for calculation [address] [...] AM EDT Appointment Radiology Pet CT [address] [facility] [place] [place] [address] CT with Labs 02/24/2025 12:00 PM EDT [facility] [address] [phone] Kaylynn Bethea, PRESCRIPTION EYEGLASS MAKER.RURAL HEALTH CONSULTANT [address] [place] [address] f/up 03/17/2025 7:30 AM EDT Office Visit [facility] Laboratory [address] [facility] [place] [place] [address] LAB 04/14/2025 7:30 AM EDT Office Visit [facility] Laboratory [address] [place] [address] LAB 05/19/2025 7:30 AM EST Office Visit [facility] Laboratory [address] [facility] [place] [place] [address] LAB 06/16/2025 7:30 AM EST Office Visit [facility] Laboratory [address] [facility] [place] [place] [address] LAB documented as of this encounter Visit Diagnoses Not on filedocumented in this encounter Additional Health Concerns Infection Onset Date Last Indicated Resolved Time COVID-19 Rule-Out 02/22/2023 02/22/2023 02/22/2023 7:08 PM EDT documented as of this encounter Care Teams Overseamer Relationship Specialty Start Date End Date Jeison Cole Sr., DO PCP - General Family Medicine 03/09/22 03/08/23 Antonio Nelson [address] [place] [address] PCP - General Internal Medicine 03/09/23 01/08/24 Rebecca Soliz MD [address] [place] [address] PCP - General Family Medicine 01/09/24 Christiane Helms(Historical) Referring 01/21/22 Anabel Bonilla, RN 02/24/23 documented as of this encounter
--- OUTSIDE RECORDS SUMMARY | 2025-02-10 16:09 | XMS_ITS | Encounter Summary ---
Author Organization [facility] Address [address] [place] [address] Care Team Providers Care Car Hopper Name Role Phone Christiane Helms(Historical) Unavailable Unavail able Douglas Faulkner, Jeison MALCOLM Primary Care Provider + Anabel Bonilla RN Unavailable Unavaila Antonio Carmona Primary Care Provider [phone] Rebecca Soliz MD Primary Care Provider [phone] Source Comments In the event this information is protected by the Federal Confidentiality of Alcohol and Drug AbusePatient Records regulations: The Federal rules restrict any use of the information to criminally investigate or prosecute any alcohol or drug abuse patient.[facility] Encounter Details Date Type Department Care Team (Late st Contact Info) Description 06/21/2022 [place] [address] Provider, Ccf MRI Screening Questionnaire Completion Required Social History Tobacco Use Types Packs/Day Years [...] suspected to have Coronavirus/COVID-19? No / Unsure 06/02/2022 12:23 PM EST documented as of this encounter Plan of Treatment Upcoming Encounters Date Type Department Care Team (Late st Contact Info) Description 02/21/2025 7:45 AM EDT Appointment Radiology Pet CT [address] [facility] [place] [place] [address] CT with Labs 02/24/2025 12:00 PM EDT [facility] [place] [address] [address] Kaylynn Bethea APRN.BALLING HEAD TENDER [address] [place] [address] f/up 03/17/2025 7:30 AM EDT Office Visit [facility] Laboratory [address] [facility] [place] [address] LAB 04/14/2025 7:30 AM EDT Office Visit [facility] Laboratory [address] [facility] [place] [address] LAB 05/19/2025 7:30 AM EST Office Visit [facility] Laboratory [address] [facility] [place] [address] LAB 06/16/2025 7:30 AM EST Office Visit [facility] Laboratory [address] [facility] [place] [address] LAB documented as of this encounter Visit Diagnoses Not on filedocumented in this encounter Additional Health Concerns Infection Onset Date Last Indicated Resolved Time COVID-19 Rule-Out 02/22/2023 02/22/2023 02/22/2023 7:08 PM EDT documented as of this encounter Care Teams Car Hopper Relationship Specialty Start Date End Date Jeison Cole Sr., PCP - General Family Medicine 03/09/22 03/08/23 Antonio Nelson [address] [place] [address] PCP - General Internal Medicine 03/09/23 01/08/24 Rebecca Soliz MD [address] [place] [address] PCP - General Family Medicine 01/09/24 Christiane Helms(Historical) Referring 01/21/22 Anabel Bonilla, RN 02/24/23 documented as of this encounter
--- OUTSIDE RECORDS SUMMARY | 2025-02-10 16:09 | XMS_ITS | Encounter Summary ---
Author Organization [facility] [place] [facility] Address [address] [place] [address] Care Team Providers Care Refining Still Operator Name Role Phone Christiane Helms(Historical) Unavailable Unavail able Douglas Faulkner, Jeison MALCOLM Primary Care Provider + Anabel Bonilla RN Unavailable Unavaila Antonio Carmona Primary Care Provider [phone] Rebecca Soliz MD Primary Care Provider [phone] Source Comments In the event this information is protected by the Federal Confidentiality of Alcohol and Drug AbusePatient Records regulations: The Federal rules restrict any use of the information to criminally investigate or prosecute any alcohol or drug abuse patient.[facility] [place] [facility] Encounter Details Date Type Department Care Team (Late st Contact Info) Description 09/15/2022 Patient Msg [facility] [address] [place] [address] Provider, Ccf pre procedure instructions for y90 therasphere scheduled on 09/22/22 Social History Tobacco Use Types Packs/Day Years Used Date Smoking Tobacco: Former Cigarettes 0.5 29 0 08/1986 - 08/2015 Smokeless Tobacco: Never Alcohol Use Standard Drinks/Week Comments No 0 (1 standard drink = 0.6 oz pur e alcohol) Area Deprivation Index Answer Date Rodrigue rded National Score (1-100), lower number is lower ri sk 62 07/16/2022 State Score (1-10), lower number is lower risk N ot on file 07/16/2022 Data from: https://www.neighborhoodatlas.medicine.[facility]/. Last address used for calculation [address] 07/16/2022 Comments No Sex and Gender Information Value Date Recorded Sex Assigned at Not on file Legal Sex Female 8:21 AM EST Gender Identity Not on file Sexual Orientation Not on file documented as of this encounter Plan of Treatment Upcoming Encounters Date Type Department Care Team (Late st Contact Info) Description 02/21/2025 7:45 AM EDT Appointment Radiology Pet CT [address] [place] [address] CT with Labs 02/24/2025 12:00 PM EDT [facility] [address] [phone] Kaylynn Bethea, HAND COLLATOR.BREAKFAST HOST [address] [place] [address] f/up 03/17/2025 7:30 AM EDT Office Visit [facility] Laboratory [address] [place] [address] LAB 04/14/2025 7:30 AM EDT Office Visit [facility] Laboratory [address] [place] [address] LAB 05/19/2025 7:30 AM EST Office Visit [facility] Laboratory [address] [place] [address] LAB 06/16/2025 7:30 AM EST Office Visit [facility] Laboratory [address] [place] [address] LAB documented as of this encounter Visit Diagnoses Not on filedocumented in this encounter Additional Health Concerns Infection Onset Date Last Indicated Resolved Time COVID-19 Rule-Out 02/22/2023 02/22/2023 02/22/2023 7:08 PM EDT documented as of this encounter Care Teams Refining Still Operator Relationship Specialty Start Date End Date Jeison Cole Sr., DO PCP - General Family Medicine 03/09/22 03/08/23 Antonio Nelson [address] [place] [address] PCP - General Internal Medicine 03/09/23 01/08/24 Rebecca Soliz MD [address] [place] [address] PCP - General Family Medicine 01/09/24 Christiane Helms(Historical) Referring 01/21/22 Anabel Bonilla, RN 02/24/23 documented as of this encounter
--- OUTSIDE RECORDS SUMMARY | 2025-02-10 16:09 | XMS_ITS | Encounter Summary ---
Author Organization [facility] [place] [facility] Address [address] [place] [address] Care Team Providers Care Public Safety Officer Name Role Phone RaghuSabine roeer(Historical) Unavailable Unavail able Anabel Bonilla RN Unavailable Unavaila Antonio Carmona Primary Care Provider [phone] Rebecca Soliz MD Primary Care Provider [phone] Source Comments In the event this information is protected by the Federal Confidentiality of Alcohol and Drug AbusePatient Records regulations: The Federal rules restrict any use of the information to criminally investigate or prosecute any alcohol or drug abuse patient.[facility] Encounter Details Date Type Department Care Team (Late st Contact Info) Description 03/31/2023 Patient Msg Transplant Center [address] [phone] Coordinator, Liver Txp [address] [place] [address] labs Social History Tobacco Use Types Packs/Day Years Used Date Smoking Tobacco: Former Cigarettes 0.5 29 0 08/1986 - 08/2015 Smokeless Tobacco: Never Alcohol Use Standard Drinks/Week Comments No 0 (1 standard drink = 0.6 oz pur e alcohol) Overall Financial Resource Strain (CARDIA) Answe r Date Recorded How hard is it for you to pa y for the very basics like food, housing, medical care, and heating? Not very hard 02/24/2023 Hunger Vital Sign Answer Date Recorded Within the past 12 months, y ou worried that your food would run out before you got the money to buy more. Never true 02/25/20 23 Within the past 12 months, t he food you bought just didn't last and you didn't have money to get more. Never true 02/24/2023 PRAPARE - Transportation Answer Date Re corded In the past 12 months, has l ack of transportation kept you from medical appointments or from getting medications? No 02/01 In the past 12 months, has l ack of transportation kept you from meetings, work, or from getting things needed for daily living? No 02/24/2023 Housing Stability Vital Sign Answer Jermaine e Recorded In the last 12 months, was t here a time when you were not able to pay the mortgage or rent on time? No 02/24/2023 In the last 12 months, how many places have you lived? 1 02/24/2023 In the last 12 months, was t here a time when you did not have a steady place to sleep or slept in a half-way (including now)? No 02/24/2023 Area Deprivation Index Answer Date Rodrigue rded National Score (1-100), lower number is lower ri sk 59 12/29/2022 State Score (1-10), lower number is lower risk 4 12/29/2022 Data from: https://www.neighborhoodatlas.medicine.[facility].edu/. Last address used for calculation [address] 12/29/2022 Comments No Sex and Gender Information Value Date Recorded Sex Assigned at Not on file Legal Sex Female 8:21 AM EST Gender Identity Not on file Sexual Orientation Not on file documented as of this encounter Functional Status * Are you deaf or do you have serious difficulty hearing? Answer Date of Assessment Author No 03/02/2023 2:46 PM EDT Nicci Davidson, RN * Are you blind or do you have serious difficulty seeing, even when wearing glasses? Answer Date of Assessment Author No 03/02/2023 2:43 PM EDT Nicci Davidson RN * Do you have serious difficulty walking or climbing stairs? Answer Date of Assessment Author No 03/02/2023 2:43 PM EDT Nicci Davidson RN * Do you have difficulty dressing or bathing? Answer Date of Assessment Author No 03/02/2023 2:43 PM EDT Nicci Davidson RN * Because of a physical, mental, or emotional condition, do you have difficulty doing errands alone such as visiting a doctor's office or shopping? Answer Date of Assessment Author No 03/02/2023 2:43 PM EDT Nicci Davidson RN documented as of this encounter Mental Status * Because of a physical, mental, or emotional condition, do you have serious difficulty concentrating, remembering, or making decisions? Answer Entry Date Author No 03/02/2023 2:43 PM EDT Nicci Davidson RN documented in this encounter Plan of Treatment Upcoming Encounters Date Type Department Care Team (Late st Contact Info) Description 02/21/2025 7:45 AM EDT Appointment Radiology Pet CT [address] [place] [address] CT with Labs 02/24/2025 12:00 PM EDT [facility] [address] [place], [place] [phone] Kaylynn Bethea APRN.MACHINE OPERATOR HOP PICKER [address] [place] [address] f/up 03/17/2025 7:30 AM EDT Office Visit [facility] Laboratory [address] [place] [address] LAB 04/14/2025 7:30 AM EDT Office Visit [facility] Laboratory [address] [place] [address] LAB 05/19/2025 7:30 AM EST Office Visit [facility] Laboratory [address] [place] [address] LAB 06/16/2025 7:30 AM EST Office Visit [facility] Laboratory [address] [place] [address] LAB documented as of this encounter Visit Diagnoses Not on filedocumented in this encounter Care Teams Public Safety Officer Relationship Specialty Start Date End Date Luciariannajonathan Antonio Brandon [address] [place] [address] PCP - General Internal Medicine 03/09/23 01/08/24 Rebecca Soliz MD [address] [place] [address] PCP - General Family Medicine 01/09/24 Christiane Helms(Historical) Referring 01/21/22 Anabel Bonilla, RN 02/24/23 documented as of this encounter
--- OUTSIDE RECORDS SUMMARY | 2025-02-10 16:09 | XMS_ITS | Encounter Summary ---
Author Organization [facility] Address [address] [place] [address] Care Team Providers Care Senior Service Aide Name Role Phone Christiane Helms(Historical) Unavailable Unavail able Anabel Bonilla RN Unavailable Unavaila Rebecca Stafford MD Primary Care Provider [phone] Source Comments In the event this information is protected by the Federal Confidentiality of Alcohol and Drug AbusePatient Records regulations: The Federal rules restrict any use of the information to criminally investigate or prosecute any alcohol or drug abuse patient.[facility] Encounter Details Date Type Department Care Team (Late st Contact Info) Description 12/04/2024 Results Follow-Up Transplant Center [address] [phone] Anabel Bonilla, RN Social History Tobacco Use Types Packs/Day Years [...] place to sleep or slept in a residential (including now)? No 02/24/2023 Area Deprivation Index Answer Date Rodrigue rded National Score (1-100), lower number is lower ri sk 59 12/29/2022 State Score (1-10), lower number is lower risk 4 12/29/2022 Data from: https://www.neighborhoodatlas.medicine.[facility].edu/. Last address used for calculation [address] [...] of Assessment Author No 03/02/2023 2:46 PM Nicci Lopez, RN * Are you blind or do you have serious difficulty seeing, even when wearing glasses? Answer Date of Assessment Author No 03/02/2023 2:43 PM Nicci Lopez, RN * Do you have serious difficulty [...] Appointment Radiology Pet [address] [place] [address] CT with Labs 02/24/2025 12:00 PM EDT [facility] [address] [address] Kaylynn Bethea, ALIRIO.DINING ROOM COORDINATOR [address] [place] [address] f/up 03/17/2025 7:30 AM EDT Office Visit [facility] Laboratory [address] [place] [address] LAB 04/14/2025 7:30 AM EDT Office Visit [facility] [address] [place] [address] LAB 05/19/2025 7:30 AM EST Office Visit [facility] [address] [place] [address] LAB 06/16/2025 7:30 AM EST Office Visit [facility] Laboratory [address] [place] [address] LAB documented as of this encounter Visit Diagnoses Not on filedocumented in this encounter Care Teams Senior Service Aide Relationship Specialty Start Date End Date Wonderly, Rebecca Anderson MD [address] [phone] PCP - General Family Medicine 01/09/24 Christiane Helms(Historical) Referring 01/21/22 Anabel Bonilla, RN 02/24/23 documented as of this encounter
--- OUTSIDE RECORDS SUMMARY | 2025-02-10 16:09 | XMS_ITS | Encounter Summary ---
Author Organization [facility] Address [facility] [place] [address] Care Team Providers Care Php Engineer Name Role Phone Christiane Helms(Historical) Unavailable Unavail able Anabel Bonilla RN Unavailable Unavaila Rebecca Stafford MD Primary Care Provider [phone] Source Comments In the event this information is protected by the Federal Confidentiality of Alcohol and Drug AbusePatient Records regulations: The Federal rules restrict any use of the information to criminally investigate or prosecute any alcohol or drug abuse patient.[facility] Encounter Details Date Type Department Care Team (Late st Contact Info) Description 12/30/2024 Results Follow-Up Transplant Center [address] [place] [place] [phone] Razia Arias RN [address] [address] Social History Tobacco Use Types Packs/Day Years Used Date Smoking Tobacco: Former Cigarettes 0.5 29 0 08/1986 - 08/2015 Smokeless Tobacco: Never Alcohol Use Standard Drinks/Week Comments No 0 (1 standard drink = 0.6 oz pur e alcohol) Overall Financial Resource Strain (CARDIA) Marye r Date Recorded How hard is it [...] place to sleep or slept in a mcfp (including now)? No 02/24/2023 Area Deprivation Index Answer Date Rodrigue rded National Score (1-100), lower number is lower ri sk 59 12/29/2022 State Score (1-10), lower number is lower risk 4 12/29/2022 Data from: https://www.neighborhoodatlas.medicine.[facility].edu/. Last address used for calculation [address] [...] of Assessment Author No 03/02/2023 2:46 PM EDNicci Sam, RN * Are you blind or do [...] Nicci Davidson RN documented in this encounter Miscellaneous Notes * Result Encounter Note - Razia Arias RN - 12/30/2024 1:16 PM EDT Standing labs reviewed, c/w recent lab values. No changes to current POC at this time. KAISER Green, RN, [facility] Liver Sanitary Landfill Operator documented in this encounter Plan of Treatment Upcoming Encounters Date Type Department Care Team (Late st Contact Info) Description 02/21/2025 7:45 AM EDT Appointment Radiology Pet CT [facility] [place] [address] CT with Labs 02/24/2025 12:00 PM EDT [facility] Trans[facility] Center [address] [address] Kaylynn Bethea APRN.PATTERN MAKER PROGRAMER [address] [place] [address] f/up 03/17/2025 7:30 AM EDT Office Visit [facility] [place] [address] LAB 04/14/2025 7:30 AM EDT Office Visit [facility] [address] [place] [address] LAB 05/19/2025 7:30 AM EST Office Visit [facility] [address] [place] [address] LAB 06/16/2025 7:30 AM EST Office Visit [facility] [address] [place] [address] LAB documented as of this encounter Visit Diagnoses Not on filedocumented in this encounter Care Teams Php Engineer Relationship Specialty Start Date End Date Wonderly, Rebecca Anderson MD [address] [place] [address] PCP - General Family Medicine 01/09/24 Christiane Helms(Historical) Referring 01/21/22 Anabel Bonilla RN 02/24/23 documented as of this encounter
--- OUTSIDE RECORDS SUMMARY | 2025-02-10 16:09 | XMS_ITS | Encounter Summary ---
Author Organization [facility] Address [address] [place] [address] Care Team Providers Care Cotton Buyer Name Role Phone Christiane Helms(Historical) Unavailable Unavail able Anabel Bonilla RN Unavailable Unavaila Rebecca Stafford MD Primary Care Provider [phone] Source Comments In the event this information is protected by the Federal Confidentiality of Alcohol and Drug AbusePatient Records regulations: The Federal rules restrict any use of the information to criminally investigate or prosecute any alcohol or drug abuse patient.[facility] Reason for Visit * Reason Comments TIEDI quality questions Encounter Details Date Type Department Care Team (Late st Contact Info) Description 02/03/2025 Telephone Transplant Center [address] [phone] Coordinator, Liver Txp [address] [place] [address] TIEDI (quality questions) Social History Tobacco Use Types Packs/Day Years [...] is lower risk 4 12/29/2022 Data from: https://www.neighborhoodatlas.medicine.[facility].edu/. Last address used for calculation [address] [...] of Assessment Author No 03/02/2023 2:46 PM COTYT Nicci Davidson, DINA * Are you blind or do you [...] documented in this encounter Miscellaneous Notes * Telephone Encounter - Anabel Bonilla RN - 02/03/2025 2:37 PM EDT Has the patient been hospitalized since last follow up? No Functional Status / Karnofsky Score: 100% Karnofsky Score Choices: 100% - Normal, no complaints, no evidence of disease 90% - Able to carry on normal activity: minor symptoms of disease 80% - Normal activity with effort: some symptoms of disease 70% - Cares for self: unable to carry on normal activity or active work 60% - Requires occasional assistance but is able to care for needs 50% - Requires considerable assistance and frequent medical care 40% - Disabled: requires special care and assistance 30% -Severely disabled: hospitalization is indicated, not imminent 20% - Very sick, hospitalization necessary: active treatment necessary 10% - Moribund, fatal processes progressing rapidly Is patient working? Yes Is patient Newly Diabetic? No Any acute rejection during follow up period? No Any new post transplant malignancies? No Dialysis since last follow-up: No Anabel Bonilla RN, BSN Post Liver Poultry Sexer documented in this encounter Plan of Treatment Upcoming Encounters Date Type Department Care Team (Late st Contact Info) Description 02/21/2025 7:45 AM EDT Appointment Radiology Pet CT [address] [facility] [place] [address] CT with Labs 02/24/2025 12:00 PM EDT [facility] Transplant Center [address] [address] Kaylynn Bethea APRN.HAIR SPECIALIST [address] [place] [address] f/up 03/17/2025 7:30 AM EDT Office Visit [facility] Laboratory [address] [facility] [place] [address] LAB 04/14/2025 7:30 AM EDT Office Visit [facility] Laboratory [address] [facility] [place] [address] LAB 05/19/2025 7:30 AM EST Office Visit [facility] Laboratory [address] [facility] [place] [address] LAB 06/16/2025 7:30 AM EST Office Visit [facility] Laboratory [address] [facility] [place] [address] LAB documented as of this encounter Visit Diagnoses Not on filedocumented in this encounter Care Teams Cotton Buyer Relationship Specialty Start Date End Date Wonderly, Rebecca Anderson MD [address] [place] [address] PCP - General Family Medicine 01/09/24 Christiane Helms(Historical) Referring 01/21/22 Anabel Bonilla, RN 02/24/23 documented as of this encounter
--- OUTSIDE RECORDS SUMMARY | 2025-02-10 16:09 | XMS_ITS | Encounter Summary ---
Author Organization [facility] Address [address] [place] [address] Care Team Providers Care Insulation Packer Name Role Phone Rebecca Soliz MD Primary Care Provider [phone] Encounter Details Date Type Department Care Team (Late st Contact Info) Description 02/28/2024 Clinisync Result Encounter [facility] External Department Unsolicited Provider, Generic External Data Social History Tobacco Use Types Packs/Day Years Used Date Smoking Tobacco: Former Cigarettes Passive Smoke Exposure: Past Smokeless Tobacco: Never Alcohol Use Standard Drinks/Week Comments Never 0 (1 standard drink = 0.6 oz pur e alcohol) PHQ-2 Answer Date Recorded Patient Health Questionnaire-2 [...] Procedure Name Priority Date/Time Associated Diagnosis Comments CT CHEST WO IV CONTRAST 02/28/2024 9:09 AM EDT documented in this encounter Results * CT chest wo IV contrast (02/28/2024 9:09 AM EDT) Anatomical Region Laterality Modality Body, Chest Computed Tomogra phy 02/28/2024 9:09 AM EDT Narrative 02/28/2024 9:30 AM EDT * * *Final Report* * * DATE OF EXAM: Feb 28 2024 9:09AM [facility] 0541 - CT CHEST WO IVCON / PROCEDURE REASON: Encounter for screening for malignant neoplasm * * * * Physician Interpretation * * * * RESULT: EXAMINATION: CHEST CT WITHOUT CONTRAST CLINICAL HISTORY: Encounter for screening for malignant neoplasm. Technique: Spiral CT acquisition of the chest from the thoracic inlet to the upper abdomen without contrast. MQ: CTCWO_6 CT Radiation dose: Integrated Dose-length product (DLP) for this visit = 2618 mGy*cm CT Dose Reduction Employed: mAs-kVp adjusted based on patient size-age Comparison: 08/28/2023 RESULT: Limitations: None. Lines, tubes, and devices: None. Lung parenchyma and airways: No consolidation. The previously described branching nodular opacity in right upper lobe has resolved. No suspicious pulmonary nodule. The central airways are patent. Pleural space: No pleural effusion. No pleural thickening. Lower neck, lymph nodes, and mediastinum: The imaged thyroid gland is normal. No lymphadenopathy in the supraclavicular, axillary, mediastinal, or hilar regions. Heart, pericardium, and thoracic vessels: The thoracic aorta and main pulmonary artery are normal in caliber. The cardiac chambers are normal in size. No coronary artery atherosclerotic calcifications are noted, although the study is not optimized for coronary assessment. No pericardial effusion or thickening. Bones and soft tissues: No destructive bone lesion. Chest wall is unremarkable. Upper abdomen: Dictated separately. Localizer images: No additional findings. IMPRESSION: The previously described branching nodular opacity in right upper lobe has resolved. Otherwise unremarkable chest CT with no convincing findings of metastatic disease in this patient with history of hepatocellular carcinoma. Transcribe Date/Time: Feb 28 2024 9:24A Dictated by: MARGIE JOYNER MD This examination was interpreted and the report reviewed and electronically signed by: MARGIE JOYNER MD on Feb 28 2024 9:28AM EST Thank you for allowing us to participate in the care of your patient. Should there be any questions regarding this interpretation, please call [phone]. If you are unable to reach us at the number above, please feel free to contact [facility] at [phone]. [id number]^ACN Procedure Note Radiology, Radiologist, - 02/28/2024 * * *Final Report* * * DATE OF EXAM: Feb 28 2024 9:09AM [facility] 0541 - CT CHEST WO IVCON / PROCEDURE REASON: Encounter for screening for malignant neoplasm * * * * Physician Interpretation * * * * RESULT: EXAMINATION: CHEST CT WITHOUT CONTRAST CLINICAL HISTORY: Encounter for screening for malignant neoplasm. Technique: Spiral CT acquisition of the chest from the thoracic inlet to the upper abdomen without contrast. MQ: CTCWO_6 CT Radiation dose: Integrated Dose-length product (DLP) for this visit = 2618 mGy*cm CT Dose Reduction Employed: mAs-kVp adjusted based on patient size-age Comparison: 08/28/2023 RESULT: Limitations: None. Lines, tubes, and devices: None. Lung parenchyma and airways: No consolidation. The previously described branching nodular opacity in right upper lobe has resolved. No suspicious pulmonary nodule. The central airways are patent. Pleural space: No pleural effusion. No pleural thickening. Lower neck, lymph nodes, and mediastinum: The imaged thyroid gland is normal. No lymphadenopathy in the supraclavicular, axillary, mediastinal, or hilar regions. Heart, pericardium, and thoracic vessels: The thoracic aorta and main pulmonary artery are normal in caliber. The cardiac chambers are normal in size. No coronary artery atherosclerotic calcifications are noted, although the study is not optimized for coronary assessment. No pericardial effusion or thickening. Bones and soft tissues: No destructive bone lesion. Chest wall is unremarkable. Upper abdomen: Dictated separately. Localizer images: No additional findings. IMPRESSION: The previously described branching nodular opacity in right upper lobe has resolved. Otherwise unremarkable chest CT with no convincing findings of metastatic disease in this patient with history of hepatocellular carcinoma. Transcribe Date/Time: Feb 28 2024 9:24A Dictated by: MARGIE JOYNER MD This examination was interpreted and the report reviewed and electronically signed by: MARGIE JOYNER MD on Feb 28 2024 9:28AM EST Thank you for allowing us to participate in the care of your patient. Should there be any questions regarding this interpretation, please call [phone]. If you are unable to reach us at the number above, please feel free to contact [facility] at [phone]. [id number]^[email or web address]^ACN us Generic External Data Provider IMG CT PROCEDURES Final Result documented in this encounter Visit Diagnoses Not on filedocumented in this encounter Care Teams Insulation Packer Relationship Specialty Start Date End Date Wonderly, Rebecca Majano MD PCP - General Family Medicine 01/09/24 documented as of this encounter
--- OUTSIDE RECORDS SUMMARY | 2025-02-10 16:09 | XMS_ITS | Encounter Summary ---
Author Organization [facility] Address [address] [place] [address] Care Team Providers Care Biller Name Role Phone Christiane Helms(Historical) Unavailable Unavail able Anabel Bonilla RN Unavailable Unavaila Rebecca Stafford MD Primary Care Provider [phone] Source Comments In the event this information is protected by the Federal Confidentiality of Alcohol and Drug AbusePatient Records regulations: The Federal rules restrict any use of the information to criminally investigate or prosecute any alcohol or drug abuse patient.[facility] Encounter Details Date Type Department Care Team (Late st Contact Info) Description 01/14/2025 Results Follow-Up Transplant Center [address] [id number] Anabel Bonilla, RN Social History Tobacco Use [...] place to sleep or slept in a senior living (including now)? No 02/24/2023 Area Deprivation Index Answer Date Rodrigue rded National Score (1-100), lower number is lower ri sk 59 12/29/2022 State Score (1-10), lower number is lower risk 4 12/29/2022 Data from: https://www.neighborhoodatlas.medicine.[facility].edu/. Last address used for calculation [address] [...] Appointment Radiology [address] [place] [address] CT with Labs 02/24/2025 12:00 PM EDT [facility] [address] [address] Kaylynn Bethea, ALIRIO.PIG LEAD MELTER HELPER [address] [place] [address] f/up 03/17/2025 7:30 AM EDT Office Visit [facility] [address] [place] [address] LAB 04/14/2025 7:30 AM EDT Office Visit [facility] [address] [place] [address] LAB 05/19/2025 7:30 AM EST Office Visit [facility] [address] [place] [address] LAB 06/16/2025 7:30 AM EST Office Visit [facility] [address] [place] [address] LAB documented as of this encounter Visit Diagnoses Not on filedocumented in this encounter Care Teams Biller Relationship Specialty Start Date End Date Wonderly, Rebecca Anderson MD [address] [phone] PCP - General Family Medicine 01/09/24 Christiane Helms(Historical) Referring 01/21/22 Anabel Bonilla, RN 02/24/23 documented as of this encounter
--- OUTSIDE RECORDS SUMMARY | 2025-02-10 16:09 | XMS_ITS | Encounter Summary ---
Author Organization [facility] Address [address] [place] [address] Care Team Providers Care Fire Protection Inspector Name Role Phone Avery Kraft Primary Care Provider [phone] Christiane Helms(Historical) Unavailable Unavail able Douglas Faulkner DO, Charles P Primary Care Provider + Anabel Bonilla RN Unavailable Unavaila Antonio Carmona Primary Care Provider [phone] Rebecca Soliz MD Primary Care Provider [phone] Source Comments In the event this information is protected by the Federal Confidentiality of Alcohol and Drug AbusePatient Records regulations: The Federal rules restrict any use of the information to criminally investigate or prosecute any alcohol or drug abuse patient.[facility] Encounter Details Date Type Department Care Team (Late st Contact Info) Description 02/25/2022 Patient Msg Transplant Center [address] [address] Suly Lay, RN Liver transplant evaluation information Social History Tobacco Use Types Packs/Day Years [...] suspected to have Coronavirus/COVID-19? No / Unsure 02/24/2022 1:42 PM EDT documented as of this encounter Plan of Treatment Upcoming Encounters Date Type Department Care Team (Late st Contact Info) Description 02/21/2025 7:45 AM EDT Appointment Radiology Pet CT [address] [place] [address] CT with Labs 02/24/2025 12:00 PM EDT [facility] [address] [phone] Kaylynn Bethea, ALIRIO.BIT SHARPENER OPERATOR [address] [place] [address] f/up 03/17/2025 7:30 AM EDT Office Visit [facility] [address] [facility] [address] LAB 04/14/2025 7:30 AM EDT Office Visit [facility] [address] [place] [address] LAB 05/19/2025 7:30 AM EST Office Visit [facility] [address] [place] [address] LAB 06/16/2025 7:30 AM EST Office Visit [facility] [address] [facility] [address] LAB documented as of this encounter Visit Diagnoses Not on filedocumented in this encounter Additional Health Concerns Infection Onset Date Last Indicated Resolved Time COVID-19 Rule-Out 02/22/2023 02/22/2023 02/22/2023 7:08 PM EDT documented as of this encounter Care Teams Fire Protection Inspector Relationship Specialty Start Date End Date Avery Kraft DO PCP - General 01/16/09 03/08/22 Jeison Cole Sr., PCP - General Family Medicine 03/09/22 03/08/23 Antonio Nelson [address] [place] [address] PCP - General Internal Medicine 03/09/23 01/08/24 Rebecca Soliz MD [address] [place] [address] PCP - General Family Medicine 01/09/24 Christiane Helms(Historical) Referring 01/21/22 Anabel Bonilla, RN 02/24/23 documented as of this encounter
--- OUTSIDE RECORDS SUMMARY | 2025-02-10 16:09 | XMS_ITS | Encounter Summary ---
Author Organization [facility] Address [address] [place] [address] Care Team Providers Care Grass Cutter Name Role Phone Christiane Helms(Historical) Unavailable Unavail able Anabel Bonilla RN Unavailable Unavaila Rebecca Stafford MD Primary Care Provider [phone] Source Comments In the event this information is protected by the Federal Confidentiality of Alcohol and Drug AbusePatient Records regulations: The Federal rules restrict any use of the information to criminally investigate or prosecute any alcohol or drug abuse patient.[facility] Encounter Details Date Type Department Care Team (Late st Contact Info) Description 12/17/2024 Results Follow-Up Transplant Center [address] [phone] Anabel Bonilla, RN Social History Tobacco Use [...] place to sleep or slept in a fci (including now)? No 02/24/2023 Area Deprivation Index Answer Date Rodrigue rded National Score (1-100), lower number is lower ri sk 59 12/29/2022 State Score (1-10), lower number is lower risk 4 12/29/2022 Data from: https://www.neighborhoodatlas.medicine.[facility].edu/. Last address used for calculation [address] [...] Appointment Radiology Pet [address] [place] [address] CT with Labs 02/24/2025 12:00 PM EDT [facility] [address] [address] Kaylynn Bethea, ALIRIO.INSERTING MACHINE OPERATOR [address] [place] [address] f/up 03/17/2025 7:30 AM EDT Office Visit [facility] [address] [place] [address] LAB 04/14/2025 7:30 AM EDT Office Visit [facility] [address] [place] [address] LAB 05/19/2025 7:30 AM EST Office Visit [facility] [address] [place] [address] LAB 06/16/2025 7:30 AM EST Office Visit [facility] [address] [place] [address] LAB documented as of this encounter Visit Diagnoses Not on filedocumented in this encounter Care Teams Grass Cutter Relationship Specialty Start Date End Date Wonderly, Rebecca Anderson MD [address] [phone] PCP - General Family Medicine 01/09/24 Christiane Helms(Historical) Referring 01/21/22 Anabel Bonilla, RN 02/24/23 documented as of this encounter
--- OUTSIDE RECORDS SUMMARY | 2025-02-10 16:09 | XMS_ITS | Encounter Summary ---
Author Organization [facility] Address [address] [place] [address] Care Team Providers Care Director Peoplesoft Name Role Phone Christiane Helms(Historical) Unavailable Unavail able Douglas Faulkner, Jeison MALCOLM Primary Care Provider + Anabel Bonilla RN Unavailable Unavaila Antonio Carmona Primary Care Provider [phone] Rebecca Soliz MD Primary Care Provider [phone] Source Comments In the event this information is protected by the Federal Confidentiality of Alcohol and Drug AbusePatient Records regulations: The Federal rules restrict any use of the information to criminally investigate or prosecute any alcohol or drug abuse patient.[facility] Encounter Details Date Type Department Care Team (Late st Contact Info) Description 08/04/2022 Patient Msg Transplant Center [address] [address] Vickie Ace RN Liver Coordinator Social History Tobacco Use Types Packs/Day Years [...] N ot on file 07/16/2022 Data from: https://www.neighborhoodatlas.medicine.[facility]/. Last address used for calculation [...] AM EDT Appointment Radiology Pet CT [address] [facility] [address] CT with Labs 02/24/2025 12:00 PM EDT [facility] [address] [phone] Kaylynn Bethea, DELIVERY ASSOCIATE.POWER SAW MECHANIC [address] [place] [address] f/up 03/17/2025 7:30 AM EDT Office Visit [facility] [address] [place] [address] [place] [address] LAB 04/14/2025 7:30 AM EDT Office Visit [facility] [address] [place] [address] LAB 05/19/2025 7:30 AM EST Office Visit [facility] [address] [facility] [place] [address] LAB 06/16/2025 7:30 AM EST Office Visit [facility] [address] [facility] [address] LAB documented as of this encounter Visit Diagnoses Not on filedocumented in this encounter Additional Health Concerns Infection Onset Date Last Indicated Resolved Time COVID-19 Rule-Out 02/22/2023 02/22/2023 02/22/2023 7:08 PM EDT documented as of this encounter Care Teams Director Peoplesoft Relationship Specialty Start Date End Date Jeison Cole Sr., DO PCP - General Family Medicine 03/09/22 03/08/23 Antonio Nelson [address] [place] [address] PCP - General Internal Medicine 03/09/23 01/08/24 Rebecca Soliz MD [address] [place] [address] PCP - General Family Medicine 01/09/24 Christiane Helms(Historical) Referring 01/21/22 Anabel Bonilla, RN 02/24/23 documented as of this encounter
--- OUTSIDE RECORDS SUMMARY | 2025-02-10 16:09 | XMS_ITS | Encounter Summary ---
Author Organization [facility] Address [address] [place] [place] [address] Care Team Providers Care Small Battery Plate Assembler Name Role Phone Rebecca Soliz MD Primary Care Provider [phone] Encounter Details Date Type Department Care Team (Late st Contact Info) Description 01/09/2024 Orders Only [facility] Family Medicine [address] [place] [address] Jinny Patino MD [address] [place] [address] Social History Tobacco Use Types Packs/Day Years [...] as of this encounter Functional Status * Over the past 2 weeks, how often have you been bothered by any of the following problems? Question Answer Date of Assessment Author Little interest or pleasure in doing things Not at all 01/09/2024 8:56 AM EDT Jinny Metcalf MA Feeling down, depressed, or hopeless Not at all 01/09/2024 8:56 AM EDT Jinny Metcalf MA Patient Health Questionnaire -2 Score 0 01/09/2024 8:56 AM EDT Jinny Metcalf MA documented as of this encounter Plan of Treatment Not on file documented as of this encounter Procedures Procedure Name Priority Date/Time Associated Diagnosis Comments MAMMOGRAM* Routine 04/26/2023 11:24 AM EDT DEXA BONE DENSITY Routine 09/05/2022 11:21 AM EST PAP SMEAR Routine 04/19/2022 11:19 AM EDT documented in this encounter Results * MAMMOGRAM* (04/26/2023 11:24 AM EDT) Anatomical Region Laterality Modality Radiographic Ruba ging us Antonio Nelson MD IMG XR PROCEDURES Edited Result - Final * DEXA bone density (09/05/2022 11:21 AM EST) Anatomical Region Laterality Modality Body Radiographic Ruba ging us Jeison Cole MD IMG DXA PROCEDURES Final Resu lt * Pap Smear (04/19/2022 11:19 AM EDT) Swab Cervical swab / Unknown us Jinny Patino MD LAB CYTOLOGY ORDERABLES Edited Result - Final documented in this encounter Visit Diagnoses Not on filedocumented in this encounter Care Teams Small Battery Plate Assembler Relationship Specialty Start Date End Date Heydi, Rebecca Majano MD PCP - General Family Medicine 01/09/24 documented as of this encounter
--- OUTSIDE RECORDS SUMMARY | 2025-02-10 16:09 | XMS_ITS | Encounter Summary ---
Author Organization [facility] Address [address] [facility] [place] [address] Care Team Providers Care Public Area Supervisor Name Role Phone Rebecca Soliz MD Primary Care Provider [phone] Encounter Details Date Type Department Care Team (Late st Contact Info) Description 03/01/2024 Orders Only [facility] Medicine [address] [place] [address] Christiane Helms MD [address] [place] [address] Social History Tobacco Use Types Packs/Day Years [...] Procedure Name Priority Date/Time Associated Diagnosis Comments HM COLONOSCOPY Routine 10/19/2018 11:47 AM EDT documented in this encounter Results * Hm Colonoscopy (10/19/2018 11:47 AM EDT) Anatomical Region Laterality Modality Other Christiane Helms MD HEALTH MAINTENANCE Final Result documented in this encounter Visit Diagnoses Not on filedocumented in this encounter Care Teams Public Area Supervisor Relationship Specialty Start Date End Date Heydi Rebecca Majano MD PCP - General Family Medicine 01/09/24 documented as of this encounter
--- OUTSIDE RECORDS SUMMARY | 2025-02-10 16:09 | XMS_ITS | Encounter Summary ---
Author Organization [facility] Address [address] [place] [address] Care Team Providers Care Wood Drilling Machine Operator Name Role Phone Christiane Helms(Historical) Unavailable Unavail able Douglas Faulkner, Jeison MALCOLM Primary Care Provider + Anabel Bonilla RN Unavailable Unavaila Antonio Carmona Primary Care Provider [phone] Rebecca Soliz MD Primary Care Provider [phone] Source Comments In the event this information is protected by the Federal Confidentiality of Alcohol and Drug AbusePatient Records regulations: The Federal rules restrict any use of the information to criminally investigate or prosecute any alcohol or drug abuse patient.[facility] Encounter Details Date Type Department Care Team (Late st Contact Info) Description 08/23/2022 [place] [address] Provider, [facility] MRI Screening Questionnaire Completion Required [...] N ot on file 07/16/2022 Data from: https://www.neighborhoodatlas.medicine.[facility]/. Last address used for calculation [address] [...] AM EDT Appointment Radiology Pet CT [address] [facility] [address] CT with Labs 02/24/2025 12:00 PM EDT [facility] [address] [phone] Kaylynn Bethea, ALIRIO.OPENER [employer] [address] [phone] f/up 03/17/2025 7:30 AM EDT Office Visit [facility] [address] [place] [address] [place] [address] LAB 04/14/2025 7:30 AM EDT Office Visit [facility] [address] [facility] [address] LAB 05/19/2025 7:30 AM EST Office Visit [facility] [address] [facility] [place] [address] LAB 06/16/2025 7:30 AM EST Office Visit [facility] [address] [facility] [place] [place] [address] LAB documented as of this encounter Visit Diagnoses Not on filedocumented in this encounter Additional Health Concerns Infection Onset Date Last Indicated Resolved Time COVID-19 Rule-Out 02/22/2023 02/22/2023 02/22/2023 7:08 PM EDT documented as of this encounter Care Teams Wood Drilling Machine Operator Relationship Specialty Start Date End Date Jeison Cole Sr., DO PCP - General Family Medicine 03/09/22 03/08/23 Antonio Nelson [address] [place] [address] PCP - General Internal Medicine 03/09/23 01/08/24 Rebecca Soliz MD [address] [place] [address] PCP - General Family Medicine 01/09/24 Christiane Helms(Historical) Referring 01/21/22 Anabel Bonilla, RN 02/24/23 documented as of this encounter
--- OUTSIDE RECORDS SUMMARY | 2025-02-10 16:09 | XMS_ITS | Encounter Summary ---
Author Organization [facility] Address [address] [place] [address] Care Team Providers Care Erp Specialist Name Role Phone Christiane Helms(Historical) Unavailable Unavail able Douglas Faulkner, Jeison MALCOLM Primary Care Provider + Anabel Bonilla RN Unavailable Unavaila Antonio Carmona Primary Care Provider [phone] Rebecca Soliz MD Primary Care Provider [phone] Source Comments In the event this information is protected by the Federal Confidentiality of Alcohol and Drug AbusePatient Records regulations: The Federal rules restrict any use of the information to criminally investigate or prosecute any alcohol or drug abuse patient.[facility] Encounter Details Date Type Department Care Team (Late st Contact Info) Description 01/02/2023 Patient Msg Transplant Center [address] [address] Vickie Ace RN Vacation Notification Social History Tobacco Use Types Packs/Day Years [...] is lower risk 4 12/29/2022 Data from: https://www.neighborhoodatlas.medicine.[facility]/. Last address used for calculation [...] AM EDT Appointment Radiology Pet [facility] [address] [facility] [place] [address] CT with Labs 02/24/2025 12:00 PM EDT [facility] [address] [id number] Kaylynn Bethea, APPLICATIONS PROGRAMMER.CHILD NUTRITION DIRECTOR [address] [place] [address] f/up 03/17/2025 7:30 AM EDT Office Visit [facility] [address] [facility] [place] [address] LAB 04/14/2025 7:30 AM EDT Office Visit [facility] [address] [place] [address] LAB 05/19/2025 7:30 AM EST Office Visit [facility] [address] [facility] [place] [address] LAB 06/16/2025 7:30 AM EST Office Visit [facility] [address] [facility] [place] [address] LAB documented as of this encounter Visit Diagnoses Not on filedocumented in this encounter Additional Health Concerns Infection Onset Date Last Indicated Resolved Time COVID-19 Rule-Out 02/22/2023 02/22/2023 02/22/2023 7:08 PM EDT documented as of this encounter Care Teams Erp Specialist Relationship Specialty Start Date End Date Jeison Cole Sr., DO PCP - General Family Medicine 03/09/22 03/08/23 Antonio Nelson [address] [place] [address] PCP - General Internal Medicine 03/09/23 01/08/24 Rebecca Soliz MD [address] [place] [address] PCP - General Family Medicine 01/09/24 Christiane Helms(Historical) Referring 01/21/22 Anabel Bonilla, RN 02/24/23 documented as of this encounter
--- OUTSIDE RECORDS SUMMARY | 2025-02-10 16:09 | XMS_ITS | Encounter Summary ---
Author Organization [facility] Address [address] [place] [address] Care Team Providers Care Housing Grant Analyst Name Role Phone Christiane Helms(Historical) Unavailable Unavail able Douglas Faulkner, Jeison MALCOLM Primary Care Provider + Anabel Bonilla RN Unavailable Unavaila Antonio Carmona Primary Care Provider [phone] Rebecca Soliz MD Primary Care Provider [phone] Source Comments In the event this information is protected by the Federal Confidentiality of Alcohol and Drug AbusePatient Records regulations: The Federal rules restrict any use of the information to criminally investigate or prosecute any alcohol or drug abuse patient.[facility] Reason for Visit * Reason Comments Radiology [place] Encounter Details Date Type Department Care Team ([facility] st Contact Info) Description 05/25/2022 Radiology Molecular Imaging [address] [place] [address] Enrique Villanueva RT(R) Radiology [place] Social History Tobacco Use Types Packs/Day Years Used Date Smoking Tobacco: Former Cigarettes 0.5 20 0 08/1995 - 08/2015 Smokeless Tobacco: Never Alcohol Use [...] suspected to have Coronavirus/COVID-19? No / Unsure 05/23/2022 7:38 AM EST documented as of this encounter Progress Notes * Enrique Villanueva RT(R) - 05/25/2022 10:10 AM EST RADIOLOGY SERVICE PROGRESS NOTE SERVICE DATE: 05/25/2022 SERVICE TIME: 10:10 AM PATIENT IDENTITY VERIFICATION COMPLETED USING TWO (2) STANDARD IDENTIFIERS: Name and Date of confirmed by patient verbally FALL SCREENING: Has the patient had 2 falls in the last year or 1 fall with injury or currently using an Ambulatory Assistive Device (Walker, Cane, Wheelchair, Crutches, etc.)? No PATIENT GENDER DATA: .female : No ALLERGIES: Reviewed and unchanged MEDICATIONS REVIEWED: Not applicable PATIENT RELEVANT IMPLANT DATA REVIEWED: Not Applicable CREATININE: Creatinine Date Value Ref Range Status 05/23/2022 0.68 0.58 - 0.96 mg/dL Final 03/10/2022 0.72 0.58 - 0.96 mg/dL Final 01/22/2009 0.58 (L) 0.70 - 1.40 mg/dL Final Estimated Glomerular Filtration Rate Date Value Ref Range Status 05/23/2022 106 >=60 mL/min/1.73m Final Comment: Estimated Glomerular Filtration Rate (eGFR) is calculated using the 2020 CKD-EPI creatinine equation. This equation utilizes serum creatinine, sex, and age as parameters. The creatinine assay has traceable calibration to isotope dilution- mass spectrometry. Refer to KDIGO guidelines for clinical interpretation. In patients with unstable renal function, e.g. those with acute kidney injury, the eGFRmay not accurately reflect actual GFR. eGFR- Date Value Ref Range Status 01/22/2009 >60 Final P.O.C.T. RESULTS: N/A May 25, [address] PERFORMED: No IV SITE: NM only - not applicable, oral or physician administered agents given to patient POST EXAM PIV STATUS: Not applicable PROCEDURE TYPE: NM INJECT: pretherasphere scan. 4.5 mCi Tc99m MAA. No other medications given.. ADMINISTRATION TIME: 1015 PATIENT DISCHARGED TO: Ambulatory patient, left [place] department area. A Diagnostic radioactive procedure has taken place, with no further precautions necessary other than routine body substance precautions. More information regarding radiation safety can be found [facility] link: [email or web address] SIGNATURE: RT Enzo(R) PATIENT NAME: Zenia Espinoza DATE: May 25, 2022 TIME: 10:10 AM PAGER/CONTACT #: documented in this encounter Plan of Treatment Upcoming Encounters Date Type Department Care Team (Late st Contact Info) Description 02/21/2025 7:45 AM EDT Appointment Radiology Pet CT [address] [facility] [place] [address] CT with Labs 02/24/2025 12:00 PM EDT [facility] [address] [place], [place] [phone] Kaylynn Bethea APRN.PROGRAM STRATEGIST [address] [place] [address] f/up 03/17/2025 7:30 AM EDT Office Visit [facility] [address] [place], [place] [address] [address] LAB 04/14/2025 7:30 AM EDT Office Visit [facility] [place] [address] LAB 05/19/2025 7:30 AM EST Office Visit [facility] [address] [place] [address] [place] [address] LAB 06/16/2025 7:30 AM EST Office Visit [facility] [address] [place] [address] LAB documented as of this encounter Visit Diagnoses Not on filedocumented in this encounter Additional Health Concerns Infection Onset Date Last Indicated Resolved Time COVID-19 Rule-Out 02/22/2023 02/22/2023 02/22/2023 7:08 PM EDT documented as of this encounter Care Teams Housing Grant Analyst Relationship Specialty Start Date End Date Jeison Cole Sr., DO PCP - General Family Medicine 03/09/22 03/08/23 Antonio Nelson [address] [place], [place] [id number] PCP - General Internal Medicine 03/09/23 01/08/24 Rebecca Soliz MD [address] [place], [place] [id number] PCP - General Family Medicine 01/09/24 Christiane Helms(Historical) Referring 01/21/22 Anabel Bonilla, RN 02/24/23 documented as of this encounter
--- OUTSIDE RECORDS SUMMARY | 2025-02-10 16:09 | XMS_ITS | Encounter Summary ---
Author Organization [facility] Address [address] [place] [address] Care Team Providers Care Campus Monitor Name Role Phone RaghuChristiane roe(Historical) Unavailable Unavail able Anabel Bonilla RN Unavailable Unavaila Rebecca Stafford MD Primary Care Provider [phone] Source Comments In the event this information is protected by the Federal Confidentiality of Alcohol and Drug AbusePatient Records regulations: The Federal rules restrict any use of the information to criminally investigate or prosecute any alcohol or drug abuse patient.[facility] Encounter Details Date Type Department Care Team (Late st Contact Info) Description 04/11/2024 Patient Msg Transplant Center [address] [phone] Provider, [facility] Transplant Night with [facility] - Virtual Event Social History Tobacco Use Types Packs/Day Years [...] place to sleep or slept in a fpc (including now)? No 02/24/2023 Area Deprivation Index Answer Date Rodrigue rded National Score (1-100), lower number is lower ri sk 59 12/29/2022 State Score (1-10), lower number is lower risk 4 12/29/2022 Data from: https://www.neighborhoodatlas.medicine.[facility].edu/. Last address used for calculation [address] [...] Appointment Radiology [address] [place] [address] CT with Labs 02/24/2025 12:00 PM EDT [facility] [address] [address] Kaylynn Bethea APRN.GLOBAL TECHNICAL WRITER [address] [place] [address] f/up 03/17/2025 7:30 AM EDT Office Visit [facility] [address] [place] [address] LAB 04/14/2025 7:30 AM EDT Office Visit [facility] [address] [place] [address] LAB 05/19/2025 7:30 AM EST Office Visit [facility] [address] [place] [address] LAB 06/16/2025 7:30 AM EST Office Visit [facility] [address] [place] [address] LAB documented as of this encounter Visit Diagnoses Not on filedocumented in this encounter Care Teams Campus Monitor Relationship Specialty Start Date End Date Wonderly, Rebecca Anderson MD [address] [place] [address] PCP - General Family Medicine 01/09/24 Christiane Helms(Historical) Referring 01/21/22 Anabel Bonilla, RN 02/24/23 documented as of this encounter
--- OUTSIDE RECORDS SUMMARY | 2025-02-10 16:09 | XMS_ITS | Clinical Summary ---
Author Organization [facility] Address [address] [place] [address] Care Team Providers Care Horser Up Name Role Phone Christiane Helms(Historical) Unavailable Unavail able Anabel Bonilla RN Unavailable Unavaila Rebecca Stafford MD Primary Care Provider [phone] Allergies No known active allergies Medications levothyroxine (SYNTHROID) 112 mcg tablet Take 112 mcg by mouth daily before breakfast. Active Multivitamin capsule Take 1 capsule by mouth once daily. Active acetaminophen (TYLENOL EXTRA STRENGTH) 500 mg tablet Take 1 tablet by mouth every 6 hours as needed for pain. 50 tablet 05/11/2023 Active magnesium oxide (MAG-OX) 400 mg (241.3 mg magnesium) tablet TAKE 1 TABLET BY MOUTH TWICE DAILY LUNCH AND DINNER 180 tablet 3 06/16/2024 Active predniSONE (DELTASONE) 5 mg tablet Take 1 tablet by mouth once daily. 90 tablet 3 06/17/2024 Active sulfamethoxazol e-trimethoprim (BACTRIM DS) 800-160 mg per tablet Take 1 tablet by mouth every Monday, day,Monday. 39 tablet 3 06/19/2024 Active mycophenolate mofetil (CELLCEPT) 250 mg capsule Take 2 capsules by mouth two times a day. 360 capsule 3 09/16/2024 Active tacrolimus IR (PROGRAF) 1 mg capsule Take 2 capsules by mouth two times a day. 360 capsule 3 12/03/2024 Active Active Problems Problem Noted Date Diagnosed Date Need for prophylactic immunotherapy 02/27/2023 Assessment & Plan (03/01/2023 3:38 PM EDT): Crossmatch T & B cell positive Induction: Simulect 02/24, 02/28 Current immunosuppression: Cellcept 1000 mg BID Steroid taper Tacrolimus 4 mg BID FK level is 7.8 Plan: -Continue current Tacrolimus dose -Continue Cellcept and Steroid taper -FK level daily Assessment & Plan (02/28/2023 1:45 PM EDT): Crossmatch T & B cell positive Induction: Simulect 02/24 Current immunosuppression: Cellcept 1000 mg BID Steroid taper Tacrolimus 2 mg BID Plan: -Second dose of Simulect today -Give 2 mg extra of tacrolimus now and increase dose to 4 mg BID -Continue Cellcept and Steroid taper -FK level daily Assessment & Plan (02/27/2023 3:29 PM EDT): Crossmatch T & B cell positive Induction: Simulect 02/24 Current immunosuppression: Cellcept 1000 mg BID Steroid taper Tacrolimus 1 mg BID Plan: -Second dose of Simulect 02/28 -Increase tacrolimus to 2 mg BID -Continue Cellcept and Steroid taper -FK level daily Obesity, Class II, BMI 35-39.9 02/25/2023 Assessment & Plan (02/27/2023 1:30 PM EDT): ASSESSMENT: -BMI 36.36 PLAN: -lifestyle modifications as able Assessment & Plan (02/26/2023 5:28 AM EDT): ASSESSMENT: -BMI 36.36 PLAN: -lifestyle modifications as able Post-op pain 02/23/2023 Assessment & Plan (03/01/2023 3:37 PM EDT): S/p OLT Abdominal pain is controlled Reports back pain Plan: - stop fentanyl - continue Tylenol and Oxycodone - add Robaxin for back pain Assessment & Plan (02/28/2023 1:44 PM EDT): S/p OLT Pain is well controlled Plan: - pain managment per SICU team Assessment & Plan (02/28/2023 9:13 AM EDT): ASSESSMENT: -s/p OLT PLAN: -multimodal pain regimen -Tylenol 500mg q6h Assessment & Plan (02/27/2023 3:24 PM EDT): S/p OLT Pain is well controlled Plan: - pain managment per SICU team Assessment & Plan (02/27/2023 1:29 PM EDT): ASSESSMENT: -s/p OLT PLAN: -multimodal pain regimen Assessment & Plan (02/26/2023 5:28 AM EDT): ASSESSMENT: -s/p OLT PLAN: -multimodal pain regimen Assessment & Plan (02/25/2023 4:40 AM EDT): A: S/p OLT P: Multimodal pain regimen Assessment & Plan (02/24/2023 11:24 AM EDT): A: S/p OLT P: Multimodal pain regimen Assessment & Plan (02/23/2023 4:14 PM EDT): A: S/p OLT P: Multimodal pain regimen Status post liver transplant 02/23/2023 Assessment & Plan (03/01/2023 3:34 PM EDT): S/o DCD OLT (OrganOx, piggyback, PV main to main, dCHA/SA to rCHA/GDA, duct to duct) on 02/23/23 for HCC/AIH MELD 9 LVUS(02/23) Patent hepatic vasculature with appropriately directed flow. LFTs trending down Plan: - CMP daily - Bactrim, Acyclovir, Nystatin for prophylaxis - remove last JOSI today - ordered self medication instructions - meds sent to pharmacy for coverage check Assessment & Plan (02/28/2023 1:44 PM EDT): S/o DCD OLT (OrganOx, piggyback, PV main to main, dCHA/SA to rCHA/GDA, duct to duct) on 02/23/23 for HCC/AIH MELD 9 LVUS(02/23) Patent hepatic vasculature with appropriately directed flow. LFTs trending down Plan: - CMP daily - Bactrim, Acyclovir, Nystatin for prophylaxis - remove last JOSI today - ready for RNF Assessment & Plan (02/28/2023 9:13 AM EDT): ASSESSMENT: -S/p OLT 02/23. Newly diagnosed HCC c/b portal HTN, splenomegaly, thrombocytopenia, small EV. Intraoperative course complicated by flushing after being given 1 units of platelets and subequent tachycardia and hypotension. PLAN: -postop management -immunosuppression per primary -Tolerating regular diet Assessment & Plan (02/27/2023 3:22 PM EDT): S/o DCD OLT (OrganOx, piggyback, PV main to main, dCHA/SA to rCHA/GDA, duct to duct) on 02/23/23 for HCC/AIH MELD 9 LVUS(02/23) Patent hepatic vasculature with appropriately directed flow. LFTs trending down Plan: - CMP daily - Bactrim, Acyclovir, Nystatin for prophylaxis - remove lateral JOSI today - ready for RNF Assessment & Plan (02/27/2023 1:29 PM EDT): ASSESSMENT: -S/p OLT 02/23. Newly diagnosed HCC c/b portal HTN, splenomegaly, thrombocytopenia, small EV. Intraoperative course complicated by flushing after being given 1 units of platelets and subequent tachycardia and hypotension. PLAN: -postop management -immunosuppression per primary -Advance from CLD to regular diet Assessment & Plan (02/26/2023 5:31 AM EDT): ASSESSMENT: -S/p OLT 02/23. Newly diagnosed HCC c/b portal HTN, splenomegaly, thrombocytopenia, small EV. Intraoperative course complicated by flushing after being given 1 units of platelets and subequent tachycardia and hypotension. PLAN: -postop management -immunosuppression per primary -CLD diet Assessment & Plan (02/25/2023 4:40 AM EDT): A: S/p OLT 02/23. Newly diagnosed HCC c/b portal HTN, splenomegaly, thrombocytopenia, small EV. Intraoperative course complicated by flushing after being given 1 units of platelets and subequent tachycardia and hypotension. P: Per primary -CLD diet Assessment & Plan (02/24/2023 11:45 AM EDT): A: S/p OLT 02/23. Newly diagnosed HCC c/b portal HTN, splenomegaly, thrombocytopenia, small EV. Intraoperative course complicated by flushing after being given 1 units of platelets and subequent tachycardia and hypotension. P: Per primary -Advance diet to clear liquids per primary Assessment & Plan (02/23/2023 4:14 PM EDT): A: S/p OLT 02/23. Newly diagnosed HCC c/b portal HTN, splenomegaly, thrombocytopenia, small EV. Intraoperative course complicated by flushing after being given 1 units of platelets and subequent tachycardia and hypotension. P: Per primary Acute postoperative respiratory insufficiency Assessment & Plan (03/01/2023 3:39 PM EDT): Saturating good on RA Plan: -BPH/IS -out of bed -supplemental O2 as needed Assessment & Plan (02/28/2023 1:46 PM EDT): Saturating good on RA Plan: -BPH/IS -out of bed -supplemental O2 as needed Assessment & Plan (02/28/2023 9:13 AM EDT): ASSESSMENT: -Self extubated, continues to sat well on 2L NC -lungs clear throughout PLAN: -BPH/IS -wean O2 as clinically tolerated Assessment & Plan (02/27/2023 3:27 PM EDT): Saturating good on 2L NC Plan: -BPH/IS -out of bed -supplemental O2 as needed Assessment & Plan (02/27/2023 1:29 PM EDT): ASSESSMENT: -Self extubated, continues to sat well on 2L NC -lungs clear throughout PLAN: -BPH/IS -wean O2 as clinically tolerated Assessment & Plan (02/26/2023 4:19 AM EDT): ASSESSMENT: -Self extubated, continues to sat well on 2L NC -lungs clear throughout PLAN: -BPH/IS -wean O2 as clinically tolerated Assessment & Plan (02/25/2023 4:40 AM EDT): A: Self extubate this AM, satting well on 2 NC P: -NC sat well -BPH/IS Assessment & Plan (02/24/2023 11:25 AM EDT): A: Self extubate this AM, satting well on 2 NC P: -Wean O2 as tolerated -BPH/IS Assessment & Plan (02/23/2023 4:13 PM EDT): A: Arrived to SICU intubated P: WTE BPH/IS when able Supraventricular tachycardia 02/23/2023 Assessment & Plan (03/01/2023 3:33 PM EDT): developed SVT intraop which resolved after pressors and fluids. Currently hemodynamically stable Plan: -continues telemetry monitoring - monitor electrolytes Assessment & Plan (02/28/2023 1:43 PM EDT): developed SVT intraop which resolved after pressors and fluids. Currently hemodynamically stable Plan: -continues telemetry monitoring - monitor electrolytes Assessment & Plan (02/28/2023 9:13 AM EDT): ASSESSMENT: -developed SVT intraop which resolved after pressors and fluids. Currently hemodynamically stable. PLAN: -daily CMP -monitor Assessment & Plan (02/27/2023 3:15 PM EDT): developed SVT intraop which resolved after pressors and fluids. Currently hemodynamically stable Plan: -continues telemetry monitoring - monitor electrolytes Assessment & Plan (02/27/2023 1:29 PM EDT): ASSESSMENT: -developed SVT intraop which resolved after pressors and fluids. Currently hemodynamically stable. PLAN: -daily CMP -monitor Assessment & Plan (02/26/2023 5:32 AM EDT): ASSESSMENT: -developed SVT intraop which resolved after pressors and fluids. Currently hemodynamically stable. PLAN: -daily CMP -monitor Assessment & Plan (02/25/2023 4:40 AM EDT): A: Developed SVT intraop which resolved after pressors and fluids. Currently hemodynamically stable. P: Daily CMP Monitor on telemetry Assessment & Plan (02/24/2023 11:25 AM EDT): A: Developed SVT intraop which resolved after pressors and fluids. Currently hemodynamically stable. P: Daily CMP Monitor on telemetry Assessment & Plan (02/23/2023 4:12 PM EDT): A: Developed SVT intraop which resolved after pressors and fluids. Currently hemodynamically stable. P: Daily CMP Monitor on telemetry History of Arlene thyroiditis 02/23/2023 Assessment & Plan (03/01/2023 3:38 PM EDT): On 112 mcg of Synthroid at home Plan; Continue home regimen Assessment & Plan (02/28/2023 1:45 PM EDT): On 112 mcg of Synthroid at home Plan; Continue home regimen Assessment & Plan (02/28/2023 9:14 AM EDT): ASSESSMENT: -Hypothyroid, currently on 112mcg Synthroid at home PLAN: -continue home regimen Assessment & Plan (02/27/2023 3:25 PM EDT): On 112 mcg of Synthroid at home Plan; Continue home regimen Assessment & Plan (02/27/2023 1:29 PM EDT): ASSESSMENT: -Hypothyroid, currently on 112mcg Synthroid at home PLAN: -continue home regimen Assessment & Plan (02/26/2023 4:32 AM EDT): ASSESSMENT: -Hypothyroid, currently on 112mcg Synthroid at home PLAN: -continue home regimen Assessment & Plan (02/25/2023 4:40 AM EDT): A: Hypothyroid, currently on 112mcg Synthroid at home P: Resumed home synthroid Assessment & Plan (02/24/2023 11:25 AM EDT): A: Hypothyroid, currently on 112mcg Synthroid at home P: Resume home synthroid Assessment & Plan (02/23/2023 4:11 PM EDT): A: Hypothyroid, currently on 112mcg Synthroid at home P: Resume home synthroid Electrolyte imbalance 02/23/2023 Assessment & Plan (03/01/2023 3:39 PM EDT): Hypophosphatemia - resolved Hypokalemia - 3.1 Plan: - Potassium chloride PO 10 mEq once - monitor Mg, K, Na, and Phos daily - replace electrolytes as needed Assessment & Plan (02/28/2023 1:45 PM EDT): Hypophosphatemia - resolved Plan: - monitor Mg, K, Na, and Phos daily - replace electrolytes as needed Assessment & Plan (02/28/2023 9:14 AM EDT): ASSESSMENT: -hypophosphatemic 2.2 PLAN: -replace lytes as clinically indicated Assessment & Plan (02/27/2023 3:26 PM EDT): Hypophosphatemia - 2.2 Plan: - replacement per SICU team - monitor Mg, K, Na, and Phos daily Assessment & Plan (02/27/2023 1:29 PM EDT): ASSESSMENT: -hypophosphatemic 2.2 PLAN: -replace lytes as clinically indicated Assessment & Plan (02/26/2023 4:25 AM EDT): ASSESSMENT: -hypophosphatemic 2.2 PLAN: -replace lytes as clinically indicated Assessment & Plan (02/25/2023 4:41 AM EDT): Resolved. Assessment & Plan (02/24/2023 11:27 AM EDT): A: lytes normalized this AM, fluid status ok (+1L) P: continue to monitor Postoperative anemia due to acute blood loss Assessment & Plan (03/01/2023 3:35 PM EDT): Estimated Blood Loss: 650 mls Transfusions: 0U PRBC, 0U FFP, 1U PLT, 0U cryo, 205 cc cellsaver H/H 10.8/32.4 Plan: - CBC daily - monitor for bleeding - transfuse as needed Assessment & Plan (02/28/2023 1:44 PM EDT): Estimated Blood Loss: 650 mls Transfusions: 0U PRBC, 0U FFP, 1U PLT, 0U cryo, 205 cc cellsaver H/H 05/01.5 Plan: - CBC daily - monitor for bleeding - transfuse as needed Assessment & Plan (02/28/2023 9:14 AM EDT): ASSESSMENT: -EBL 500cc. Pt received 200 cc back from cell saver. -02/24: hgb 8.6 --> 8.9 PLAN: -Monitor H+H, coags -Transfuse if Hgb<7 Assessment & Plan (02/27/2023 3:24 PM EDT): Estimated Blood Loss: 650 mls Transfusions: 0U PRBC, 0U FFP, 1U PLT, 0U cryo, 205 cc cellsaver H/H Plan: - CBC daily - monitor for bleeding - transfuse as needed Assessment & Plan (02/27/2023 1:30 PM EDT): ASSESSMENT: -EBL 500cc. Pt received 200 cc back from cell saver. -02/24: hgb 8.6 --> 8.9 PLAN: -Monitor H+H, coags -Transfuse if Hgb<7 Assessment & Plan (02/26/2023 5:29 AM EDT): ASSESSMENT: -EBL 500cc. Pt received 200 cc back from cell saver. -02/24: hgb 8.6 --> 8.9 PLAN: -Monitor H+H, coags -Transfuse if Hgb<7 Assessment & Plan (02/25/2023 4:41 AM EDT): A: EBL 500cc. Pt received 200 cc back from cell saver. 02/24: hgb 8.6 Plan: Monitor H+H, coags Transfuse if Hgb<7 Assessment & Plan (02/24/2023 11:30 AM EDT): A: EBL 500cc. Pt received 200 cc back from cell saver. 02/24: hgb 8.6 Plan: Monitor H+H, coags Transfuse products as necessary Assessment & Plan (02/23/2023 11:01 PM EDT): EBL 500cc. Pt received 200 cc back from cell saver. Plan: Monitor H+H, coags Transfuse products as necessary Coagulopathy 02/23/2023 Assessment & Plan (02/27/2023 1:30 PM EDT): ASSESSMENT: -02/24: INR 1.7, APTT 51.3, Plt 43, fibrinogen 168 -02/25: INR 1.7; APTT 39.7 -okay for SQH PLAN: -monitor coags -monitor clinically for signs of bleeding Assessment & Plan (02/26/2023 4:20 AM EDT): ASSESSMENT: -02/24: INR 1.7, APTT 51.3, Plt 43, fibrinogen 168 -02/25: INR 1.7; APTT 39.7 -okay for SQH PLAN: -monitor coags -monitor clinically for signs of bleeding Assessment & Plan (02/25/2023 4:42 AM EDT): A: 02/24: INR 1.7, APTT 51.3, Plt 43, fibrinogen 168 02/25: INR 1.7; APTT 39.7 P: -Monitor coags. -Monitor clinically for signs of bleeding. -Consider SQH currently pending primary approval Assessment & Plan (02/24/2023 11:32 AM EDT): A: 02/24: INR 1.7, APTT 51.3, Plt 43, fibrinogen 168 P: -Monitor coags. -Monitor clinically for signs of bleeding. -Consider SQH once INR < 1.5 and plt > 50, discuss with primary Assessment & Plan (02/23/2023 11:04 PM EDT): Monitor coags. Monitor clinically for signs of bleeding. Liver transplant candidate 02/22/2023 Cirrhosis of liver without ascites 03/22/2022 Hepatocellular carcinoma 03/22/2022 Portal hypertension 03/22/2022 Esophageal varices without bleeding 03/22/2022 Assessment & Plan (02/27/2023 1:28 PM EDT): ASSESSMENT: -Hx of small esophageal varices, last EGD 11/26/21 -home regimen of prilosec PLAN: -continue PPI Assessment & Plan (02/26/2023 4:26 AM EDT): ASSESSMENT: -Hx of small esophageal varices, last EGD 11/26/21 -home regimen of prilosec PLAN: -continue PPI Assessment & Plan (02/25/2023 4:40 AM EDT): A: Hx of small esophageal varices, last EGD 11/26/21 P: 40 IV Protonix daily. Resume pt's 20mg Prilosec when able Assessment & Plan (02/24/2023 11:23 AM EDT): A: Hx of small esophageal varices, last EGD 11/26/21 P: 40 IV Protonix daily. Resume pt's 20mg Prilosec when able Assessment & Plan (02/23/2023 4:11 PM EDT): A: Hx of small esophageal varices, last EGD 11/26/21 P: 40 IV Protonix daily. Resume pt's 20mg Prilosec when able to tolerate PO. Need for hepatitis A and B vaccination Colon cancer screening 03/22/2022 Red blood cell antibody positive 03/15/2022 Overview (03/15/2022): See Blood Bank Report, Antibody Interpretation for details. Assessment & Plan (02/27/2023 1:27 PM EDT): ASSESSMENT: -Pt had possible reaction to Platelets intraoperatively. Pt has red blood cell antibody positivity. PLAN: -maintain type and screen with crossmatch Assessment & Plan (02/26/2023 5:30 AM EDT): ASSESSMENT: -Pt had possible reaction to Platelets intraoperatively. Pt has red blood cell antibody positivity. PLAN: -maintain type and screen with crossmatch Assessment & Plan (02/25/2023 4:39 AM EDT): Pt had possible reaction to Platelets intraoperatively. Pt has red blood cell antibody positivity. Plan: Consider requesting cross matching platelets or RBCs before transfusion if needed. Assessment & Plan (02/24/2023 11:23 AM EDT): Pt had possible reaction to Platelets intraoperatively. Pt has red blood cell antibody positivity. Plan: Consider requesting cross matching platelets or RBCs before transfusion if needed. Assessment & Plan (02/23/2023 11:09 PM EDT): Pt had possible reaction to Platelets intraoperatively. Pt has red blood cell antibody positivity. Plan: Consider requesting cross matching platelets before transfusion if needed. Autoimmune hepatitis 01/22/2009 Resolved Problems Problem Noted Date Diagnosed Date Resolved Date Respiratory insufficiency 02/23/2023 Obesity, Class II, BMI 35-39.9 02/23/2023 02/24/2023 Assessment & Plan (02/24/2023 11:44 AM EDT): Follow-up with PCP on d/c Encounters Date Type Department Care Team Description 02/03/2025 Telephone Transplant Center [address] [place] [address] Coordinator, Liver Txp TIEDI (quality questions) 01/24/2025 Orders Only Transplant Center [address] [place], [place] [id number] Flash Dawkins MD 01/14/2025 Results Follow-Up Transplant Center [address] [place], [place] [id number] Anabel Bonilla RN 01/13/2025 Travel 12/30/2024 Results Follow-Up Transplant Center [address] [place], [place] [address] Razia Arias RN 12/17/2024 Results Follow-Up Transplant Center [address] [place], [place] [address] Anabel Bonilla, DINA 12/04/2024 Results Follow-Up Transplant Center [address] [place] [id number] Anabel Bonilla, RN 12/03/2024 Patient Msg Transplant Center [address] [place], [place] [id number] Coordinator, Liver Txp tacrolimus 12/03/2024 Refill Transplant Center [address] [place], [place] [id number] Coordinator, Liver Txp Rx Refills (FK dose to 2 mg BID) 12/02/2024 Travel 11/27/2024 Refill Transplant Center [address] [place] [address] Coordinator, Liver Txp Rx Refills 11/27/2024 Refill Transplant Center [address] [place], [place] [address] Coordinator, Liver Txp Refill Request 11/15/2024 Results Follow-Up Transplant Center [address] [id number] Anabel Bonilla RN from Last 3 Months Immunizations Immunization Administration Dates Next Due COVID-19 original vaccine, a ge 12+ yr, monovalent ([employer] - PURPLE TOP) 05/31/2021 COVID-19 vaccine (HOWIE) 11/04/2020 Family History Medical History Relation Comments No Known Problems Father Hypertension Mother Colon Cancer No Family History Relation Status Comments Father Alive Mother Alive Social History Tobacco Use Types Packs/Day Years Used Date Smoking Tobacco: Former Cigarettes 0.5 29 0 08/1986 - 08/2015 Smokeless Tobacco: Never Tobacco Cessation:Counseling Given: Not Answered Alcohol Use Standard Drinks/Week Comments No 0 [...] place to sleep or slept in a fdc (including now)? No 02/24/2023 Area Deprivation Index Answer Date Rodrigue rded National Score (1-100), lower number is lower ri sk 59 12/29/2022 State Score (1-10), lower number is lower risk 4 12/29/2022 Data from: https://www.neighborhoodatlas.medicine.[facility]/. Last address used for calculation [address] 12/29/2022 Comments No Sex and Gender Information Value Date Recorded Sex Assigned at Not on file Legal Sex Female 8:21 AM EST Gender Identity Not on file Sexual Orientation Not on file Last Filed Vital Signs Vital Sign Reading Time Taken Comments Blood Pressure 127/52 05/17/2023 2:08 PM EST Pulse 84 05/17/2023 2:08 PM EST Temperature 36.6 C (97.8 F) 05/17/2023 2:08 PM EST Respiratory Rate 18 05/17/2023 2:08 PM EST Oxygen Saturation 98% 05/17/2023 2:08 PM EST Inhaled Oxygen Concentration - - Weight 94.3 kg (208 lb) 05/17/2023 2:08 PM EST Height 160 cm (5' 3 ) 05/17/2023 2:08 PM EST Body Mass Index 36.85 05/17/2023 2:08 PM EST Plan of Treatment Upcoming Encounters Date Type Department Care Team (Late st Contact Info) Description 02/21/2025 7:45 AM EDT Appointment Radiology [facility] [address] [place] [address] CT with Labs 02/24/2025 12:00 PM EDT [facility] [address] [address] Kaylynn Bethea, BEAM RACKER.ENTERTAINMENT MANAGER [address] [place] [address] f/up 03/17/2025 7:30 AM EDT Office Visit [facility] [address] [place], [place] [address] [address] LAB 04/14/2025 7:30 AM EDT Office Visit [facility] [address] [place], [place] [address] [address] LAB 05/19/2025 7:30 AM EST Office Visit [facility] [address] [place] [address] LAB 06/16/2025 7:30 AM EST Office Visit [facility] [address] [place] [address] LAB Health Maintenance Due Date Last Done Comments Cervical Cancer Screening 1981 Anxiety Screening 1988 Depression Screening 1988 DTaP,Tdap,Td Vaccine (1 - Tdap) 1989 Shingrix Vaccine (1 of 2) 1989 Hepatitis A Vaccine (3 of 3 - Hep A Twinrix risk 3-dose series) 04/11/2013 11/09/2012, 10/05/2012 Hepatitis B Vaccine (3 of 3 - Hep B Twinrix 3-dose series) 04/11/2013 11/09/2012, 10/05/2012 Pneumococcal Vaccine: 50+ (2 of 2 - PCV) 10/05/2013 10/05/2012 CT Colonography 2015 Cologuard (FIT-DNA) 2015 Colonoscopy 2015 Colorectal Cancer Screening 2015 Fecal Occult Blood 2015 Sigmoidoscopy 2015 Influenza Vaccine (#1) 2025 Mammogram Screening 05/03/2025 05/03/2024, Diabetes Screening 01/14/2028 01/13/2025, 0 12/30/2024, 12/16/2024, Additional history exists Lipid Screening 10/08/2028 10/09/2023, 07/03, 05/15/2023, Additional history exists HIV Screening Completed 02/22/2023, 05/23/2022 Hepatitis C Screening Completed 03/27/2023 , 02/22/2023, 02/22/2023, Additional history exists Medical Devices Implanted Type Area Pole Classifier Device Identifier Shelf Expiration Date Model / Serial / Lot Device Angio-Seal Vip 6fr .035in Collagen 70cm Closure [employer] - [id number] Implanted:Qty : 1 on 06/23/2022 at [facility] Implant Right: Artery - Femoral [employer] 03/02/2023 [id number] / / [id number] Device Angio-Seal Vip 6fr .035in Collagen 70cm Closure [employer] - [id number] Implanted:Qty : 1 on 09/22/2022 at [facility] Implant Right: Artery - Extremity Lower [employer] 05/02/2023 [id number] / / [id number] Device Angio-Seal Vip 6fr .035in Collagen 70cm Closure [employer] - [id number] Implanted:Qty : 1 on 02/03/2023 at [facility] Implant Right: Artery - Femoral [employer] 12/07/2023 [id number] / / [id number] Procedures Procedure Name Priority Date/Time Associated Diagnosis Comments TACROLIMUS/FK-506 BL Routine 01/13/2025 7:13 AM EDT Disorder of liver Liver replaced by transplant (HCC) MAGNESIUM BLD Routine 01/13/2025 7:13 AM EDT Disorder of liver Liver replaced by transplant (HCC) COMPREHENSIVE METABOLIC PANEL Routine 01/13/2025 7:13 AM EDT Disorder of liver Liver replaced by transplant (HCC) CBC + DIFF Routine 01/13/2025 7:13 AM EDT Disorder of liver Liver replaced by transplant (HCC) TACROLIMUS/FK-506 BL Routine 12/30/2024 7:13 AM EDT Disorder of liver Liver replaced by transplant (HCC) MAGNESIUM BLD Routine 12/30/2024 7:13 AM EDT Disorder of liver Liver replaced by transplant (HCC) COMPREHENSIVE METABOLIC PANEL Routine 12/30/2024 7:13 AM EDT Disorder of liver Liver replaced by transplant (HCC) CBC + DIFF Routine 12/30/2024 7:13 AM EDT Disorder of liver Liver replaced by transplant (HCC) TACROLIMUS/FK-506 BL Routine 12/16/2024 7:23 AM EDT Disorder of liver Liver replaced by transplant (HCC) MAGNESIUM BLD Routine 12/16/2024 7:23 AM EDT Disorder of liver Liver replaced by transplant (HCC) COMPREHENSIVE METABOLIC PANEL Routine 12/16/2024 7:23 AM EDT Disorder of liver Liver replaced by transplant (HCC) CBC + DIFF Routine 12/16/2024 7:23 AM EDT Disorder of liver Liver replaced by transplant (HCC) TACROLIMUS/FK-506 BL Routine 12/02/2024 7:22 AM EDT Disorder of liver Liver replaced by transplant (HCC) MAGNESIUM BLD Routine 12/02/2024 7:22 AM EDT Disorder of liver Liver replaced by transplant (HCC) COMPREHENSIVE METABOLIC PANEL Routine 12/02/2024 7:22 AM EDT Disorder of liver Liver replaced by transplant (HCC) CBC + DIFF Routine 12/02/2024 7:22 AM EDT Disorder of liver Liver replaced by transplant (HCC) LIPID PANEL, FASTING Routine 10/09/2023 7:32 AM EDT Liver replaced by transplant (HCC) HEPATITIS C VIRUS (HCV) RNA, QUANTITATIVE PCR, PLASMA/SERUM Routine 03/27/2023 7:55 AM EDT Liver transplanted (HCC) Special screening examination for viral disease At risk for infection transmitted from donor Exposure to hepatitis B HIV 1/2 COMBO WITH REFLEX TO DIFFERENTIATION STAT 02/22/2023 5:54 PM EDT from Last 3 Months or Most Recently Relevant to Health Maintenance Results * (ABNORMAL) MAGNESIUM (01/13/2025 7:13 AM EDT) Only the most recent of4 resultswithin the time period is included. Magnesium 1.5(L) 1.7 - 2.3 mg/dL 01/13/2025 8:21 AM EDT [facility] Blood BLOOD SPECIMEN / Unknown Venipuncture / Unknown 01/13/2025 7:13 AM EDT 01/13/2025 7:13 AM EDT Sarah Brady MD LABORATORY Final Result Performing Organization Address City/[facility]/ZIP Co de Phone Number [facility] [address] [place] [address] * TACROLIMUS/FK-506 BL (01/13/2025 7:13 AM EDT) Only the most recent of4 resultswithin the time period is included. Pathologist [facility] Tacrolimus/FK506 7.1 5.0 - 20.0 ng/mL 01/13/2025 10:37 PM EDT [facility] Comment:Individualized targe t levels for a given patient will depend on many factors (including the type of organ transplant, time since transplantation, concurrent medications, and other clinical factors), and should be assessed by those health care providers experienced in the management of immunosuppression. Reference ranges and high/low indicator flags are provided as general guidelines only. The treating physician must determine appropriate target levels/dosing based on the specific clinical situation. Test performed by chemiluminescent immunoassay using Gaatu Alinity i. Blood BLOOD SPECIMEN / Unknown Venipuncture / Unknown 01/13/2025 7:13 AM EDT 01/13/2025 7:13 AM EDT Sarah Brady MD LABORATORY Final Result [facility] [address] [address], * (ABNORMAL) COMPREHENSIVE METABOLIC PANEL (01/13/2025 7:13 AM EDT) Only the most recent of4 resultswithin the time period is included. Pathologist [facility] Protein, Total 6.8 6.3 - 8.0 g/dL 01/13/2025 8:22 AM EDT [facility] Albumin 4.0 3.9 - 4.9 g/dL 01/13/2025 8:22 AM [facility] Calcium, Total 9.6 8.5 - 10.2 mg/dL 01/13/2025 8:22 AM [facility] Bilirubin, Total 0.2 0.2 - 1.3 mg/dL 01/13/2025 8:22 AM [facility] Alkaline Phosphatase 114 34 - 123 U/L 01/13/2025 8:22 AM [facility] AST 24 13 - 35 U/L 01/13/2025 8:22 AM [facility] ALT 22 7 - 38 U/L 01/13/2025 8:22 AM [facility] Glucose 83 74 - 99 mg/dL 01/13/2025 8:22 AM [facility] Comment: The [place] Diabetes Association (ADA) provides guidance for cutoff values for fasting glucose and random glucose. The ADA defines fasting as no caloric intake for at least 8 hours. Fasting plasma glucose results between 100 to 125 mg/dL indicate increased risk for diabetes (prediabetes). Fasting plasma glucose results greater than or equal to 126 mg/dL meet the criteria for diagnosis of diabetes. In the absence of unequivocal hyperglycemia, results should be confirmed by repeat testing. In a patient with classic symptoms of hyperglycemia or hyperglycemic crisis, random plasma glucose results greater than or equal to 200 mg/dL meet the criteria for diagnosis of diabetes. Reference: Standards of Medical Care in Diabetes 2016, [place] Diabetes Association. Diabetes Care. 2016.39(Suppl 1). BUN 29(H) 7 - 21 mg/dL 01/13/2025 8:22 AM [facility] Creatinine 0.97(H) 0.58 - 0.96 mg/dL 01/13/2025 8:22 AM [facility] Sodium 140 136 - 144 mmol/L 01/13/2025 8:22 AM [facility] Potassium 3.9 3.7 - 5.1 mmol/L 01/13/2025 8:22 AM [facility] Chloride 106 98 - 107 mmol/L 01/13/2025 8:22 AM EDT [facility] CO2 24 22 - 30 mmol/L 01/13/2025 8:22 AM EDT [facility] Anion Gap 10 8 - 15 mmol/L 01/13/2025 8:22 AM EDT [facility] Estimated Glomerular Filtration Rate 70 >=60 mL/min/1. 73m 01/13/2025 8:22 AM EDT [facility] Comment:Estimated Glomerular Filtration Rate (eGFR) is calculated using the 2020 CKD-EPI creatinine equation. This equation utilizes serum creatinine, sex, and age as parameters. The creatinine assay has traceable calibration to isotope dilution- mass spectrometry. Refer to KDIGO guidelines for clinical interpretation. In patients with unstable renal function, e.g. those with acute kidney injury, the eGFR may not accurately reflect actual GFR. Blood BLOOD SPECIMEN / Unknown Venipuncture / Unknown 01/13/2025 7:13 AM EDT 01/13/2025 7:13 AM EDT Sarah Brady MD LABORATORY Final Result [facility] [address] [place] [address] * (ABNORMAL) COMPLETE BLOOD COUNT AND DIFFERENTIAL (01/13/2025 7:13 AM EDT) Only the most recent of4 resultswithin the time period is included. WBC 5.39 3.70 - 11.00 k/uL 01/13/2025 7:48 AM EDT [facility] RBC 4.87 3.90 - 5.20 m/uL 01/13/2025 7:48 AM EDT [facility] Hemoglobin 13.7 11.5 - 15.5 g/dL 01/13/2025 7:48 AM EDT [facility] Hematocrit 42.6 36.0 - 46.0 % 01/13/2025 7:48 AM EDT [facility] MCV 87.5 80.0 - 100.0 fL 01/13/2025 7:48 AM EDT [facility] MCH 28.1 26.0 - 34.0 pg 01/13/2025 7:48 AM EDT [facility] MCHC 32.2 30.5 - 36.0 g/dL 01/13/2025 7:48 AM EDT [facility] RDW-CV 13.4 11.5 - 15.0 % 01/13/2025 7:48 AM EDT [facility] Platelet Count 131(L) 150 - 400 k/uL 01/13/2025 7:48 AM EDT [facility] Comment:Results checked and verified.No clot detected. MPV 11.4 9.0 - 12.7 fL 01/13/2025 7:48 AM EDT [facility] Neutrophils % 67.2 % 01/13/2025 7:48 AM EDT [facility] Abs Neut 3.62 1.45 - 7.50 k/uL 01/13/2025 7:48 AM EDT [facility] Lymphocytes % 17.6 % 01/13/2025 7:48 AM EDT [facility] Abs Lymph 0.95(L) 1.00 - 4.00 k/uL 01/13/2025 7:48 AM EDT [facility] Monocytes % 11.7 % 01/13/2025 7:48 AM EDT [facility] Abs [place] 0.63 <0.87 k/uL 01/13/2025 7:48 AM EDT [facility] Eosinophils % 2.4 % 01/13/2025 7:48 AM EDT [facility] Abs Eosin 0.13 <0.46 k/uL 01/13/2025 7:48 AM EDT [facility] Basophils % 0.2 % 01/13/2025 7:48 AM EDT [facility] Abs Baso <0.03 <0.11 k/uL 01/13/2025 7:48 AM EDT [facility] Immature Granulocytes % 0.9 % 01/13/2025 7:48 AM EDT [facility] Abs Immature Gran 0.05 <0.10 k/uL 01/13/2025 7:48 AM EDT [facility] NRBC 0.0 /100 WBC 01/13/2025 7:48 AM EDT [facility] Absolute nRBC <0.01 <0.01 k/ 01/13/2025 7:48 AM EDT [facility] Diff Type Auto 01/13/2025 7:48 AM EDT [facility] Blood BLOOD SPECIMEN / Unknown Venipuncture / Unknown 01/13/2025 7:13 AM EDT 01/13/2025 7:13 AM EDT Sarah Brady MD LABORATORY Final Result [facility] [address] [place] [address] * LIPID PANEL BASIC (10/09/2023 7:32 AM EDT) Cholesterol, Total 154 <200 mg/dL 10/09/2023 8:46 PM EDT [facility] Comment: <200 mg/dL, Desirable 200-239 mg/dL, Borderline high >239 mg/dL, High Triglyceride 69 <150 mg/dL 10/09/2023 8:46 PM EDT [facility] Comment: <150 mg/dL, Normal 150-199 mg/dL, Borderline high 200-499 mg/dL, High >499 mg/dL, Very high HDL Cholesterol 65 >39 mg/dL 8:46 PM EDT [facility] Comment: 40-59 mg/dL, Acceptable >59 mg/dL, High: Negative risk factor for coronary heart disease <40 mg/dL, Low: Positive risk factor for coronary heart disease Non HDL Cholesterol 89 <130 mg/dL 10/09/2023 8:46 PM EDT [facility] Comment: <130 mg/dL, Optimal 130-159 mg/dL, Near optimal/above optimal 160-189 mg/dL, Borderline high 190-219 mg/dL, High >219 mg/dL, Very high Secondary prevention optimal non HDL Cholesterol levels are recommended to be <100 mg/dL Fasting Time 12 hrs 10/09/2023 8:46 PM EDT [facility] VLDL Cholesterol 14 <30 mg/dL 10/09/19 8:46 PM EDT [facility] TC:HDL Ratio 2.37 <5.10 10/09/2023 8:46 PM EDT [facility] LDL Cholesterol, Calculated 75 <100 mg/dL 10/09/2023 8:46 PM EDT [facility] Comment: <100 mg/dL, Optimal 100-129 mg/dL, Near optimal/above optimal 130-159 mg/dL, Borderline high 160-189 mg/dL, High >189 mg/dL, Very high Secondary prevention optimal LDL Cholesterol levels are recommended to be < 70 mg/dL LDL:HDL Ratio 1.15 <2.54 10/09/2023 8:46 PM EDT [facility] Comment: Reference: 1. National Cholesterol Education Program ATP III Guideline At-A-Glance Quick Desk Reference: National Heart, Lung, and Blood [place]. National Institutes of Health. 2001: NIH Publication No. 01-3305. 2. An International Atherosclerosis Society position paper: global recommendations for the management of dyslipidemia: executive summary, Atherosclerosis. 2014: 232(2):410-413. Blood BLOOD SPECIMEN / Unknown Venipuncture / Unknown 10/09/2023 7:32 AM EDT 10/09/2023 7:32 AM EDT us Kehinde Jacobs MD LABORATORY Final Result [facility] [address] [facility] [address] [place] [address], [facility] [address] [place] [address] * HCV QUANT RNA BY PCR (03/27/2023 7:55 AM EDT) HCV RNA HCV RNA not detected by PCR. HCV RNA not detected by PCR. CHRIS CHAD 6800 03/28/2023 3:17 AM EDT [facility] Blood BLOOD SPECIMEN / Unknown Venipuncture / Unknown 03/27/2023 7:55 AM EDT 03/27/2023 7:55 AM EDT Narrative [facility] - 03/28/2023 3:17 AM EDT The Linear Range of this assay is 15 IU/ml to 100,000,000 IU/ml us Lloyd Menjivar MD LABORATORY Final Result [facility] [address] [place] [id number], [place] * HIV 1 2 COMBO(AG/AB),WITH REFLEX TO DIFFERENTIATION (02/22/2023 5:54 PM EDT) Pathologist [facility] HIV 12 Combo (Ag/Ab) Nonreactive Nonreactive 02/22/2023 10:13 PM EDT [facility] HIV-1/2 AB (Confirmatory) 02/22/2023 10:13 PM EDT [facility] Comment:Test not indicated. HIV Interpretation 02/22/2023 10:13 PM EDT [facility] Comment: No evidence of HIV-1 or HIV-2 infection. Should recent infection be suspected, repeat testing may be considered 2-3 weeks after this draw. [place] Rev. Code 3701.243(E): This information has been disclosed to you from confidential records protected from disclosure by state law. You shall make no further disclosure of this information without the specific, written, and informed release of the individual to whom it pertains or as otherwise permitted by state law. A general authorization for the release of medical or other information is not sufficient for the purpose of the release of HIV test results or diagnoses. Blood BLOOD SPECIMEN / Unknown Venipuncture / Unknown 02/22/2023 5:54 PM EDT 02/22/2023 6:28 PM EDT us Lloyd Menjivar MD LABORATORY Final Result [facility] [address] [facility] [address] [place] [address], [place] from Last 3 Months or Most Recently Relevant to Health Maintenance Insurance [employer] Advance Directives Documents on File Type Date Recorded Patient Bung Driver Expl anation Advance Directive(s) 02/22/2023 2:38 PM Care Teams Horser Up Relationship Specialty Start Date End Date Medhatly, Rebecca Anderson MD [address] [place] [address] PCP - General Family Medicine 01/09/24 Christiane Helms(Historical) Referring 01/21/22 Anabel Bonilla, RN 02/24/23
--- OUTSIDE RECORDS SUMMARY | 2025-02-10 16:09 | XMS_ITS | Encounter Summary ---
Author Organization [facility] Address [address] [place] [address] Care Team Providers Care Sole Molding Machine Operator Name Role Phone Christiane Helms(Historical) Unavailable Unavail able Douglas Faulkner, Jeison MALCOLM Primary Care Provider + Anabel Bonilla RN Unavailable Unavaila Antonio Carmona Primary Care Provider [phone] Rebecca Soliz MD Primary Care Provider [phone] Source Comments In the event this information is protected by the Federal Confidentiality of Alcohol and Drug AbusePatient Records regulations: The Federal rules restrict any use of the information to criminally investigate or prosecute any alcohol or drug abuse patient.[facility] Encounter Details Date Type Department Care Team (Late st Contact Info) Description 12/20/2022 [place] [address] Provider, [facility] MRI Screening Questionnaire Completion Required [...] N ot on file 07/16/2022 Data from: [email or web address].medicine.[email or web address] Last address used for calculation [address] [...] AM EDT Appointment Radiology Pet [facility] [address] [facility] [place] [place] [address] CT with Labs 02/24/2025 12:00 PM EDT [facility] [address] [phone] Kaylynn Bethea, ALIRIO.FACILITIES MAINTENANCE SUPERVISOR [address] [place] [id number] f/up 03/17/2025 7:30 AM EDT Office Visit [facility] [address] [place] [address] [place] [address] LAB 04/14/2025 7:30 AM EDT Office Visit [facility] [address] [facility] [place] [address] LAB 05/19/2025 7:30 AM EST Office Visit [facility] [address] [facility] [place] [address] LAB 06/16/2025 7:30 AM EST Office Visit [facility] [address] [facility] [place] [address] LAB documented as of this encounter Visit Diagnoses Not on filedocumented in this encounter Additional Health Concerns Infection Onset Date Last Indicated Resolved Time COVID-19 Rule-Out 02/22/2023 02/22/2023 02/22/2023 7:08 PM EDT documented as of this encounter Care Teams Sole Molding Machine Operator Relationship Specialty Start Date End Date Jeison Cole Sr., DO PCP - General Family Medicine 03/09/22 03/08/23 Antonio Nelson [address] [place] [address] PCP - General Internal Medicine 03/09/23 01/08/24 Rebecca Soliz MD [address] [place] [address] PCP - General Family Medicine 01/09/24 Christiane Helms(Historical) Referring 01/21/22 Anabel Bonilla, RN 02/24/23 documented as of this encounter
--- OUTSIDE RECORDS SUMMARY | 2025-02-10 16:09 | XMS_ITS | Encounter Summary ---
Author Organization [facility] Address [address] [place] [address] Care Team Providers Care Client Engagement Specialist Name Role Phone Avery Kraft Rebeca MALCOLM Primary Care Provider [phone] Christiane Helms(Historical) Unavailable Unavail able Douglas Faulkner DO, Charles P Primary Care Provider + Anabel Bonilla RN Unavailable Unavaila Antonio Carmona Primary Care Provider [phone] Rebecca Soliz MD Primary Care Provider [phone] Source Comments In the event this information is protected by the Federal Confidentiality of Alcohol and Drug AbusePatient Records regulations: The Federal rules restrict any use of the information to criminally investigate or prosecute any alcohol or drug abuse patient.[facility] Encounter Details Date Type Department Care Team (Late st Contact Info) Description 01/21/2022 Patient Msg Transplant Center [address] [address] Provider, [facility] Transplant Social History Tobacco Use Types Packs/Day Years Used Date Smoking Tobacco: Every Day Cigarettes 0.5 20 Smokeless Tobacco: Never Alcohol Use Standard Drinks/Week [...] suspected to have Coronavirus/COVID-19? No / Unsure 01/20/2022 1:45 PM EDT documented as of this encounter Plan of Treatment Upcoming Encounters Date Type Department Care Team (Late st Contact Info) Description 02/21/2025 7:45 AM EDT Appointment Radiology Pet CT [address] [facility] [place] [address] CT with Labs 02/24/2025 12:00 PM EDT [facility] [address] [address] Kaylynn Bethea, ALIRIO.BAND INSTRUMENT MAKER [address] [place] [address] f/up 03/17/2025 7:30 AM EDT Office Visit [facility] [address] [facility] [place] [address] LAB 04/14/2025 7:30 AM EDT Office Visit [facility] [address] [facility] [place] [address] LAB 05/19/2025 7:30 AM EST Office Visit [facility] [address] [facility] [place] [address] LAB 06/16/2025 7:30 AM EST Office Visit [facility] [address] [facility] [address] LAB documented as of this encounter Visit Diagnoses Not on filedocumented in this encounter Additional Health Concerns Infection Onset Date Last Indicated Resolved Time COVID-19 Rule-Out 02/22/2023 02/22/2023 02/22/2023 7:08 PM EDT documented as of this encounter Care Teams Client Engagement Specialist Relationship Specialty Start Date End Date Avery Kraft DO PCP - General 01/16/09 03/08/22 Jeison Cole Sr., DO PCP - General Family Medicine 03/09/22 03/08/23 Antonio Nelson [address] [place] [address] PCP - General Internal Medicine 03/09/23 01/08/24 Rebecca Soliz MD [address] [place] [address] PCP - General Family Medicine 01/09/24 Christiane Helms(Historical) Referring 01/21/22 Anabel Bonilla, RN 02/24/23 documented as of this encounter
--- OUTSIDE RECORDS SUMMARY | 2025-02-10 16:09 | XMS_ITS | Encounter Summary ---
Author Organization [facility] Address [address] [place] [address] Care Team Providers Care Wound Care Center Consultant Name Role Phone Christiane Helms(Historical) Unavailable Unavail able Douglas Faulkner, Jeison MALCOLM Primary Care Provider + Anabel Bonilla RN Unavailable Unavaila Antonio Carmona Primary Care Provider [phone] Rebecca Soliz MD Primary Care Provider [phone] Source Comments In the event this information is protected by the Federal Confidentiality of Alcohol and Drug AbusePatient Records regulations: The Federal rules restrict any use of the information to criminally investigate or prosecute any alcohol or drug abuse patient.[facility] Encounter Details Date Type Department Care Team (Late st Contact Info) Description 01/09/2023 Patient Msg Transplant Center [address] [address] Vickie Ace RN Vacation Social History Tobacco Use Types Packs/Day Years [...] is lower risk 4 12/29/2022 Data from: https://www.[email or web address].medicine.[email or web address]/. Last address used for calculation [address] [...] AM EDT Appointment Radiology Pet CT [address] [facility] [place] [place] [address] CT with Labs 02/24/2025 12:00 PM EDT [facility] [address] [place] [id number] Kaylynn Bethea, MANAGER MEDICAL.PHARMACEUTICAL WORKER [address] [place] [address] f/up 03/17/2025 7:30 AM EDT Office Visit [facility] [address] [facility] [place] [place] [address] LAB 04/14/2025 7:30 AM EDT Office Visit [facility] [address] [place] [address] LAB 05/19/2025 7:30 AM EST Office Visit [facility] [address] [place] [address] LAB 06/16/2025 7:30 AM EST Office Visit [facility] [address] [facility] [place] [place] [address] LAB documented as of this encounter Visit Diagnoses Not on filedocumented in this encounter Additional Health Concerns Infection Onset Date Last Indicated Resolved Time COVID-19 Rule-Out 02/22/2023 02/22/2023 02/22/2023 7:08 PM EDT documented as of this encounter Care Teams Wound Care Center Consultant Relationship Specialty Start Date End Date Jeison Cole Sr., PCP - General Family Medicine 03/09/22 03/08/23 Antonio Nelson [address] [place] [address] PCP - General Internal Medicine 03/09/23 01/08/24 Rebecca Soliz MD [address] [place] [address] PCP - General Family Medicine 01/09/24 Christiane Helms(Historical) Referring 01/21/22 Anabel Bonilla, RN 02/24/23 documented as of this encounter
--- OUTSIDE RECORDS SUMMARY | 2025-02-10 16:09 | XMS_ITS | Encounter Summary ---
Author Organization [facility] Address [address] [place] [address] Care Team Providers Care Prenatal Teacher Name Role Phone Christiane Helms(Historical) Unavailable Unavail able Douglas Faulkner, Jeison MALCOLM Primary Care Provider + Anabel Bonilla RN Unavailable Unavaila Antonio Carmona Primary Care Provider [phone] Rebecca Soliz MD Primary Care Provider [phone] Source Comments In the event this information is protected by the Federal Confidentiality of Alcohol and Drug AbusePatient Records regulations: The Federal rules restrict any use of the information to criminally investigate or prosecute any alcohol or drug abuse patient.[facility] Encounter Details Date Type Department Care Team (Late st Contact Info) Description 06/16/2022 Patient Msg Angio [address] [place] [address] Provider, Ccf Pre procedure instructions for Y-90 Therasphere scheduled on 06/23/22 Social History Tobacco Use Types Packs/Day Years [...] AM EDT Appointment Radiology Pet CT [address] [facility] [place] [address] CT with Labs 02/24/2025 12:00 PM EDT [facility] [address] [address] Kaylynn Bethea, MANAGEMENT ASSOCIATE.LEGAL ASSISTANT [address] [place] [address] f/up 03/17/2025 7:30 AM EDT Office Visit [facility] [address] [facility] [place] [address] LAB 04/14/2025 7:30 AM EDT Office Visit [facility] [address] [facility] [place] [address] LAB 05/19/2025 7:30 AM EST Office Visit [facility] [address] [facility] [place] [address] LAB 06/16/2025 7:30 AM EST Office Visit [facility] [address] [facility] [place] [address] LAB documented as of this encounter Visit Diagnoses Not on filedocumented in this encounter Additional Health Concerns Infection Onset Date Last Indicated Resolved Time COVID-19 Rule-Out 02/22/2023 02/22/2023 02/22/2023 7:08 PM EDT documented as of this encounter Care Teams Prenatal Teacher Relationship Specialty Start Date End Date Jeison Cole Sr., DO PCP - General Family Medicine 03/09/22 03/08/23 Antonio Nelson [address] [place] [address] PCP - General Internal Medicine 03/09/23 01/08/24 Rebecca Soliz MD [address] [place] [address] PCP - General Family Medicine 01/09/24 Christiane Helms(Historical) Referring 01/21/22 Anabel Bonilla, RN 02/24/23 documented as of this encounter
--- OUTSIDE RECORDS SUMMARY | 2025-02-10 16:09 | XMS_ITS | Encounter Summary ---
Author Organization [facility] Address [address] [place] [address] Care Team Providers Care Securities Compliance Examiner Name Role Phone Christiane Helms(Historical) Unavailable Unavail able Douglas Faulkner DO, Charles P Primary Care Provider + Anabel Bonilla RN Unavailable Unavaila Antonio Carmona Primary Care Provider Rebecca Soliz MD Primary Care Provider [phone] Source Comments In the event this information is protected by the Federal Confidentiality of Alcohol and Drug AbusePatient Records regulations: The Federal rules restrict any use of the information to criminally investigate or prosecute any alcohol or drug abuse patient.[facility] Encounter Details Date Type Department Care Team (Late st Contact Info) Description 01/27/2023 Patient Msg Angio [address] [place] [address] Provider, Ccf Pre procedure instructions for Pre Y90 Mapping +/-[place] scheduled on Friday, February 03, 2023 for arrival at 6:00 a.m. Social History Tobacco Use Types Packs/Day Years [...] is lower risk 4 12/29/2022 Data from: https://www.neighborhoodatlas.medicine.[facility].edu/. Last address used for calculation [address] [...] AM EDT Appointment Radiology Pet CT [address] [facility] [place] [place] [address] CT with Labs 02/24/2025 12:00 PM EDT [facility] [address] [place] [address] Kaylynn Bethea, WET PROCESS TECHNICIAN.KNOWLEDGE MANAGEMENT ADVISOR [address] [place] [address] f/up 03/17/2025 7:30 AM EDT Office Visit [facility] [address] [place], [place] [address] [address] LAB 04/14/2025 7:30 AM EDT Office Visit [facility] [address] [facility] [place] [place] [address] LAB 05/19/2025 7:30 AM EST Office Visit [facility] [address] [facility] [place] [address] LAB 06/16/2025 7:30 AM EST Office Visit [facility] Laboratory [address] [place] [address] [place] [address] LAB documented as of this encounter Visit Diagnoses Not on filedocumented in this encounter Additional Health Concerns Infection Onset Date Last Indicated Resolved Time COVID-19 Rule-Out 02/22/2023 02/22/2023 02/22/2023 7:08 PM EDT documented as of this encounter Care Teams Securities Compliance Examiner Relationship Specialty Start Date End Date Jeison Cole Sr., DO PCP - General Family Medicine 03/09/22 03/08/23 Antonio Nelson [address] [place] [address] PCP - General Internal Medicine 03/09/23 01/08/24 Rebecca Soliz MD [address] [place] [address] PCP - General Family Medicine 01/09/24 Christiane Helms(Historical) Referring 01/21/22 Anabel Bonilla, RN 02/24/23 documented as of this encounter
--- OUTSIDE RECORDS SUMMARY | 2025-02-10 16:09 | XMS_ITS | Encounter Summary ---
Author Organization [facility] Address [address] [place] [address] Care Team Providers Care Cap Parts Cutter Name Role Phone Christiane Helms(Historical) Unavailable Unavail able Douglas Faulkner, Jeison MALCOLM Primary Care Provider + Anabel Bonilla RN Unavailable Unavaila Antonio Carmona Primary Care Provider Rebecca Soliz MD Primary Care Provider [phone] Source Comments In the event this information is protected by the Federal Confidentiality of Alcohol and Drug AbusePatient Records regulations: The Federal rules restrict any use of the information to criminally investigate or prosecute any alcohol or drug abuse patient.[facility] Encounter Details Date Type Department Care Team (Late st Contact Info) Description 05/19/2022 Patient Msg Angio [address] [place] [address] Provider, Ccf Pre procedure instructions for Pre Y-90 procedure scheduled on Monday05/25/22 Social History Tobacco Use Types Packs/Day Years [...] suspected to have Coronavirus/COVID-19? No / Unsure 05/12/2022 4:17 PM EST documented as of this encounter Plan of Treatment Upcoming Encounters Date Type Department Care Team (Late st Contact Info) Description 02/21/2025 7:45 AM EDT Appointment Radiology Pet CT [address] [place] [address] CT with Labs 02/24/2025 12:00 PM EDT [facility] [address] [id number] Kaylynn Bethea APRN.BRUSH WASHER [address] [place] [address] f/up 03/17/2025 7:30 AM EDT Office Visit [facility] [address] [facility] [place] [address] LAB 04/14/2025 7:30 AM EDT Office Visit [facility] [address] [place] [address] LAB 05/19/2025 7:30 AM EST Office Visit [facility] [address] [facility] [place] [address] LAB 06/16/2025 7:30 AM EST Office Visit [facility] [address] [facility] [place] [address] LAB documented as of this encounter Visit Diagnoses Not on filedocumented in this encounter Additional Health Concerns Infection Onset Date Last Indicated Resolved Time COVID-19 Rule-Out 02/22/2023 02/22/2023 02/22/2023 7:08 PM EDT documented as of this encounter Care Teams Cap Parts Cutter Relationship Specialty Start Date End Date Jeison Cole Sr., DO PCP - General Family Medicine 03/09/22 03/08/23 Anotnio Nelson [address] [place] [address] PCP - General Internal Medicine 03/09/23 01/08/24 Rebecca Soliz MD [address] [place] [address] PCP - General Family Medicine 01/09/24 Christiane Helms(Historical) Referring 01/21/22 Anabel Bonilla, RN 02/24/23 documented as of this encounter
--- OUTSIDE RECORDS SUMMARY | 2025-02-10 16:09 | XMS_ITS | Encounter Summary ---
Author Organization [facility] Address [address] [place] [address] Care Team Providers Care Pattern Gater Name Role Phone Christiane Helms(Historical) Unavailable Unavail able Douglas Faulkner, Jeison MALCOLM Primary Care Provider + Anabel oBnilla RN Unavailable Unavaila Antonio Carmona Primary Care Provider [phone] Rebecca Soliz MD Primary Care Provider [phone] Source Comments In the event this information is protected by the Federal Confidentiality of Alcohol and Drug AbusePatient Records regulations: The Federal rules restrict any use of the information to criminally investigate or prosecute any alcohol or drug abuse patient.[facility] Encounter Details Date Type Department Care Team (Late st Contact Info) Description 01/13/2023 Patient [facility] Trans[facility] Center [address] [address] Gege Kumar (Rn) (Hist), RN Notification of Shukla Personnel change in the Liver Transplant Program Social History Tobacco Use Types Packs/Day Years [...] is lower risk 4 12/29/2022 Data from: https://www.neighborhoodatlas.medicine.[facility].edu/. Last address used for calculation [address] [...] AM EDT Appointment Radiology Pet CT [address] [address] [place] [place] [address] CT with Labs 02/24/2025 12:00 PM EDT [facility] [address] [place], [place] [id number] Kaylynn Bethea, RETAIL FIELD REPRESENTATIVE.COSMETIC CONSULTANT [address] [place] [address] f/up 03/17/2025 7:30 AM EDT Office Visit [facility] Laboratory [address] [address] [place] [address] LAB 04/14/2025 7:30 AM EDT Office Visit [facility] Laboratory [address] [place] [address] LAB 05/19/2025 7:30 AM EST Office Visit [facility] Laboratory [address] [place] [address] LAB 06/16/2025 7:30 AM EST Office Visit [facility] [address] [facility] [address] [facility] [place] [place] [address] LAB documented as of this encounter Visit Diagnoses Not on filedocumented in this encounter Additional Health Concerns Infection Onset Date Last Indicated Resolved Time COVID-19 Rule-Out 02/22/2023 02/22/2023 02/22/2023 7:08 PM EDT documented as of this encounter Care Teams Pattern Gater Relationship Specialty Start Date End Date Jeison Cole Sr., DO PCP - General Family Medicine 03/09/22 03/08/23 Antonio Nelson [address] [place] [address] PCP - General Internal Medicine 03/09/23 01/08/24 MedhatlyRebecca MD [address] [place] [address] PCP - General Family Medicine 01/09/24 Christiane Helms(Historical) Referring 01/21/22 Anabel Bonilla, RN 02/24/23 documented as of this encounter
--- OUTSIDE RECORDS SUMMARY | 2025-02-10 16:09 | XMS_ITS | Encounter Summary ---
Author Organization [facility] Address [address] [facility] [place] [address] Care Team Providers Care Hospice Fellow Name Role Phone Rebecca Soliz MD Primary Care Provider [phone] Encounter Details Date Type Department Care Team (Late st Contact Info) Description 02/10/2025 Telephone [facility] Medicine [address] [facility] [place] [place] [address] Rebecca Soliz MD Social History Tobacco Use Types Packs/Day Years [...] encounter Miscellaneous Notes * Telephone Encounter - Marixa Kilpatrick MA - 02/10/2025 1:59 PM EDT We didn't order this, she follows with sleep medicine/pulmonology * Telephone Encounter - Rebecca Julito - 02/10/2025 1:28 PM EDT [facility]. Pt has had sleep study done months ago, at [facility] in [place] documented in this encounter Plan of Treatment Not on file documented as of this encounter Visit Diagnoses Not on filedocumented in this encounter Care Teams Hospice Fellow Relationship Specialty Start Date End Date Wonderly, Rebecca Majano MD PCP - General Family Medicine 01/09/24 documented as of this encounter
--- OUTSIDE RECORDS SUMMARY | 2025-02-10 16:09 | XMS_ITS | Encounter Summary ---
Author Organization [facility] Address [address] [place] [address] Care Team Providers Care Bakery Team Member Name Role Phone Christiane Helms(Historical) Unavailable Unavail able Douglas Faulkner, Jeison MALCOLM Primary Care Provider + Anabel Bonilla RN Unavailable Unavaila Antonio Carmona Primary Care Provider [phone] Rebecca Soliz MD Primary Care Provider [phone] Source Comments In the event this information is protected by the Federal Confidentiality of Alcohol and Drug AbusePatient Records regulations: The Federal rules restrict any use of the information to criminally investigate or prosecute any alcohol or drug abuse patient.[facility] Encounter Details Date Type Department Care Team (Late st Contact Info) Description 05/06/2022 Patient [facility] [address] [address] Suly Lay, RN Liver transplant [...] AM EDT Appointment Radiology Pet CT [address] [facility] [place] [address] CT with Labs 02/24/2025 12:00 PM EDT [facility] [place] [address] [id number] Kaylynn Bethea, REPAIR TECH.WHEELCHAIR VAN DRIVER [address] [place] [address] f/up 03/17/2025 7:30 AM EDT Office Visit [facility] Laboratory [address] [facility] [place] [place] [address] LAB 04/14/2025 7:30 AM EDT Office Visit [facility] Laboratory [address] [facility] [place] [address] LAB 05/19/2025 7:30 AM EST Office Visit [facility] Laboratory [address] [facility] [place] [address] LAB 06/16/2025 7:30 AM EST Office Visit [facility] Laboratory [address] [facility] [place] [address] LAB documented as of this encounter Visit Diagnoses Not on filedocumented in this encounter Additional Health Concerns Infection Onset Date Last Indicated Resolved Time COVID-19 Rule-Out 02/22/2023 02/22/2023 02/22/2023 7:08 PM EDT documented as of this encounter Care Teams Bakery Team Member Relationship Specialty Start Date End Date Jeison Cole Sr., PCP - General Family Medicine 03/09/22 03/08/23 Antonio Nelson [address] [place] [address] PCP - General Internal Medicine 03/09/23 01/08/24 Rebecca Soliz MD [address] [place] [address] PCP - General Family Medicine 01/09/24 Christiane Helms(Historical) Referring 01/21/22 Anabel Bonilla RN 02/24/23 documented as of this encounter
--- OUTSIDE RECORDS SUMMARY | 2025-02-10 16:09 | XMS_ITS | Encounter Summary ---
Author Organization [facility] Address [address] [place] [address] Care Team Providers Care Assembler Tractor Name Role Phone RaghuChristiane roe(Historical) Unavailable Unavail able Anabel Bonilla RN Unavailable Unavaila Antonio Carmona Primary Care Provider [phone] Rebecca Soliz MD Primary Care Provider [phone] Source Comments In the event this information is protected by the Federal Confidentiality of Alcohol and Drug AbusePatient Records regulations: The Federal rules restrict any use of the information to criminally investigate or prosecute any alcohol or drug abuse patient.[facility] Encounter Details Date Type Department Care Team (Latest Contact Info) Description 09/15/2023 Patient Msg Transplant Center [address] [id number] Provider, Ccf PCP letters and new Dental Association Recommendations Social History Tobacco Use Types Packs/Day Years [...] place to sleep or slept in a correction (including now)? No 02/24/2023 Area Deprivation Index Answer Date Rodrigue rded National Score (1-100), lower number is lower ri sk 59 12/29/2022 State Score (1-10), lower number is lower risk 4 12/29/2022 Data from: https://www.neighborhoodatlas.medicine.[facility].edu/. Last address used for calculation [address] [...] Appointment Radiology Pet CT [address] [place] [address] CT with Labs 02/24/2025 12:00 PM EDT [facility] [address] [place], [place] [id number] Kaylynn Bethea APRN.CHEMICAL RECOVERY OPERATOR [address] [place] [address] f/up 03/17/2025 7:30 AM EDT Office Visit [facility] Laboratory [address] [place] [address] LAB 04/14/2025 7:30 AM EDT Office Visit [facility] Laboratory [address] [place] [address] LAB 05/19/2025 7:30 AM EST Office Visit [facility] Laboratory [address] [place] [address] LAB 06/16/2025 7:30 AM EST Office Visit [facility] Laboratory [address] [place] [address] LAB documented as of this encounter Visit Diagnoses Not on filedocumented in this encounter Care Teams Assembler Tractor Relationship Specialty Start Date End Date IvanAntonio castillo Aleksandr [address] [place] [address] PCP - General Internal Medicine 03/09/23 01/08/24 Rebecca Soliz MD [address] [place] [address] PCP - General Family Medicine 01/09/24 Christiane Helms(Historical) Referring 01/21/22 Anabel Bonilla, RN 02/24/23 documented as of this encounter
--- OUTSIDE RECORDS SUMMARY | 2025-02-10 16:09 | XMS_ITS | Encounter Summary ---
Author Organization [facility] Address [address] [place] [address] Care Team Providers Care Boiler Plant Operator Name Role Phone Rebecca Soliz MD Primary Care Provider [phone] Encounter Details Date Type Department Care Team [...] Name Priority Date/Time Associated Diagnosis Comments CT LIVER/PELVIS WO/W IVCON 02/28/2024 9:09 AM EDT documented in this encounter Results * CT LIVER/PELVIS WO/W IVCON (02/28/2024 9:09 AM EDT) Anatomical Region Laterality Modality Other 02/28/2024 9:09 AM EDT Narrative 02/28/2024 10:33 AM EDT * * *Final Report* * * DATE OF EXAM: Feb 28 2024 9:09AM [facility] 0551 - CT LIVER/PELVIS WO/W IVCON / PROCEDURE REASON: multiple diagnoses * * * * Physician Interpretation * * * * RESULT: EXAMINATION: CT ABDOMEN AND PELVIS WITHOUT AND WITH IV CONTRAST (LIVER PROTOCOL) CLINICAL HISTORY: 52?yo female with a h/o?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 TECHNIQUE: CT of the abdomen and pelvis was performed without and with intravenous contrast (multiphasic liver protocol), scanning from just above the dome of the diaphragm to the symphysis pubis. M: CTAP_x Contrast: IV: 125 ml of Omn[address] 350 CT Radiation dose: Integrated Dose-length product (DLP) for this visit = 2618 mGy*cm. CT Dose Reduction Employed: mAs-kVp adjusted based on patient size-age COMPARISON: CT 08/28/2023, MRI 12/22/2022. RESULT: Liver: Status post OLT. Stable punctate low-attenuation central RIGHT lobe lesion (2:26). No suspicious liver mass. No LI-RADS/OPTN 5 liver lesions. Biliary: No bile duct dilation. Cholecystectomy. Spleen: No mass. No splenomegaly. Pancreas: No mass or duct dilation. Adrenals: No mass. Kidneys: LEFT kidney stone seen on prior is not well seen. No suspicious renal lesions, ureterolithiasis, or hydronephrosis. GI tract: No bowel wall thickening, dilation, or obstruction. Normal appendix. Lymph nodes: No abdominal or pelvic lymphadenopathy. Mesentery/Peritoneum/Retroperitoneum: No ascites or organized collection. Vasculature: The celiac axis and SMA are patent. The portal vein and branches, splenic vein, SMV, and hepatic veins are patent. Grossly patent hepatic transplant vasculature with slight improvement in nonspecific stranding along the proximal common hepatic artery. No abdominal aortic aneurysm. Bones/Soft Tissues: No suspicious lesions. Stable ventral abdominal postsurgical changes with medial small midline ventral wall hernias containing omental fat. Stable chronic appearing LEFT flank and posterior superficial paraspinal fluid with dystrophic calcifications. Lower thorax: A chest CT performed will be reported separately. Localizer images: No additional findings. IMPRESSION: STATUS POST OLT. NO SUSPICIOUS LIVER MASS OR ABDOMINAL METASTASES. VENTRAL WALL HERNIA REPAIR WITH NEW SMALL MIDLINE VENTRAL WALL HERNIAS WITH OMENTAL FAT. Transcribe Date/Time: Feb 28 2024 10:25A Dictated by: KAYLA NAYAK MD This examination was interpreted and the report reviewed and electronically signed by: KAYLA NAYAK MD on Feb 28 2024 10:31AM EST Thank you for allowing us to participate in the care of your patient. Should there be any questions regarding this interpretation, please call [phone]. If you are unable to reach us at the number above, please feel free to contact [facility] at [phone]. 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 TECHNIQUE: CT of the abdomen and pelvis was performed without and with intravenous contrast (multiphasic liver protocol), scanning from just above the dome of the diaphragm to the symphysis pubis. M: CTAP_x Contrast: IV: 125 ml of Omnipaque 350 CT Radiation dose: Integrated Dose-length product (DLP) for this visit = 2618 mGy*cm. CT Dose Reduction Employed: mAs-kVp adjusted based on patient size-age COMPARISON: CT 08/28/2023, MRI 12/22/2022. RESULT: Liver: Status post OLT. Stable punctate low-attenuation central RIGHT lobe lesion (2:26). No suspicious liver mass. No LI-RADS/OPTN 5 liver lesions. Biliary: No bile duct dilation. Cholecystectomy. Spleen: No mass. No splenomegaly. Pancreas: No mass or duct dilation. Adrenals: No mass. Kidneys: LEFT kidney stone seen on prior is not well seen. No suspicious renal lesions, ureterolithiasis, or hydronephrosis. GI tract: No bowel wall thickening, dilation, or obstruction. Normal appendix. Lymph nodes: No abdominal or pelvic lymphadenopathy. Mesentery/Peritoneum/Retroperitoneum: No ascites or organizedcollection. Vasculature: The celiac axis and SMA are patent. The portal vein and branches, splenic vein, SMV, and hepatic veins are patent. Grossly patent hepatic transplant vasculature with slight improvement in nonspecific stranding along the proximal common hepatic artery. No abdominal aortic aneurysm. Bones/Soft Tissues: No suspicious lesions. Stable ventral abdominal postsurgical changes with medial small midline ventral wall hernias containing omental fat. Stable chronic appearing LEFT flank and posterior superficial paraspinal fluid with dystrophic calcifications. Lower thorax: A chest CT performed will be reported separately. Localizer images: No additional findings. IMPRESSION: STATUS POST OLT. NO SUSPICIOUS LIVER MASS OR ABDOMINAL METASTASES. VENTRAL WALL HERNIA REPAIR WITH NEW SMALL MIDLINE VENTRAL WALL HERNIAS WITH OMENTAL FAT. Transcribe Date/Time: Feb 28 2024 10:25A Dictated by: KAYLA NAYAK MD This examination was interpreted and the report reviewed and electronically signed by: KAYLA NAYAK MD on Feb 28 2024 10:31AM EST Thank you for allowing us to participate in the care of your patient. Should there be any questions regarding this interpretation, please call [phone]. If you are unable to reach us at the number above, please feel free to contact [facility] at [phone]. [id number]^ACN us Generic External Data Provider [facility] Final Result documented in this encounter Visit Diagnoses Not on filedocumented in this encounter Care Teams Boiler Plant Operator Relationship Specialty Start Date End Date Wonderly, Rebecca Majano MD PCP - General Family Medicine 01/09/24 documented as of this encounter
--- OUTSIDE RECORDS SUMMARY | 2025-02-10 16:09 | XMS_ITS | Encounter Summary ---
Author Organization [facility] Address [address] [place] [address] Care Team Providers Care Glass Bead Maker Name Role Phone Christiane Helms(Historical) Unavailable Unavail able Anabel Bonilla RN Unavailable Unavaila Rebecca Stafford MD Primary Care Provider [phone] Source Comments In the event this information is protected by the Federal Confidentiality of Alcohol and Drug AbusePatient Records regulations: The Federal rules restrict any use of the information to criminally investigate or prosecute any alcohol or drug abuse patient.[facility] Encounter Details Date Type Department Care Team (Late st Contact Info) Description 12/03/2024 Patient Msg Transplant Center [address] [id number] Coordinator, Liver Txp [address] [place] [address] tacrolimus Social History Tobacco Use Types Packs/Day Years [...] place to sleep or slept in a long term (including now)? No 02/24/2023 Area Deprivation Index Answer Date Rodrigue rded National Score (1-100), lower number is lower ri sk 59 12/29/2022 State Score (1-10), lower number is lower risk 4 12/29/2022 Data from: https://www.neighborhoodatlas.medicine.[employer] [facility].edu/. Last address used for calculation [address] [...] Appointment Radiology Pet [address] [place] [address] CT with Labs 02/24/2025 12:00 PM EDT [facility] [address] [address] Kaylynn Bethea APRN.INVESTMENT BANKING ASSOCIATE [address] [place] [address] f/up 03/17/2025 7:30 AM EDT Office Visit [facility] [address] [place] [address] LAB 04/14/2025 7:30 AM EDT Office Visit [facility] [address] [place] [address] LAB 05/19/2025 7:30 AM EST Office Visit [facility] [address] [place] [address] LAB 06/16/2025 7:30 AM EST Office Visit [facility] [address] [place] [address] LAB documented as of this encounter Visit Diagnoses Not on filedocumented in this encounter Care Teams Glass Bead Maker Relationship Specialty Start Date End Date Wonderly, Rebecca Anderson MD [address] [phone] PCP - General Family Medicine 01/09/24 Christiane Helms(Historical) Referring 01/21/22 Anabel Bonilla RN 02/24/23 documented as of this encounter
[2025-02-10 16:52] LABS: TSH W/ REFLEX FT4 0.596 uIU/mL (0.358-3.740)
== END 2025-02-10 16:06 | disposition home or self-care (01) ==
LOC: LAB 16:06
PROVIDERS: PCP Nurse Practitioner Family; Visit Provider Nurse Practitioner Family
DX: E03.9 Hypothyroidism, unspecified (principal)
CPT/HCPCS: 36415; 84443